=== PATIENT | male | born 1960 | race Two or more races ===

== ENCOUNTER 2017-08-20 12:54 | Emergency (ER) | payer MEDICARE, OTHER ==
[~2017-08-20] VITALS: Ht 177.8 cm; Wt 90.7 kg
[~2017-08-20 12:54] MED LIST: ALBU90OI6 INH; AMLO10 PO; AMOCLA875 PO; AMOX500 PO; ATEN50 PO; Acetaminophen650 M1 PO; Amoxicillin500 MG PO; Ativan1 MG PO; BENZ100A PO; BLOOD PRESSURE PILL; CEPH500 PO; CYCL10 PO; DIAZ2 PO; ESOM20 PO; HYDACE10B PO; Hydrocodone-Ap1 EA20 PO; LEVSOD125 PO; LIDO2L PO; LOSA50 PO; META800 PO; METO10 PO; MORP30 PO; MORP60ER PO; MORPHINE SULFA100 M1 PO; NEBI10 PO; Norco 5-325 Ta1 EACH PO; OMEP20ER PO; ONDA4ODT MM; OXYC10TA19 PO; PREG50 PO; Percocet 5-3251 EACH PO; Prednisone20 MG PO; Prilosec Otc20 MG; RANI150 PO; RXHYD5325 PO; SIME80CH PO; THYROXINE PO; TRAZ150T57 PO; TRAZ50 PO; TYLENOL; Zofran Odt4 MG PO; Zofran Odt8 MG SL; Zofran8 MG PO
[2017-08-20] MEDS ORDERED: BENZ100A PO (14:22)
[2018-01-09] MEDS ORDERED: MORP60ER PO (09:02)
[2018-01-09] MEDS ORDERED: Hydrocodone-Ap1 EA20 PO (09:03)
[2018-01-09] MEDS ORDERED: LEVSOD125 PO (09:05)
[2018-01-09] MEDS ORDERED: ALBU90OI6 INH (09:05)
[2018-01-09] MEDS ORDERED: CHOL10002 PO (09:06)
[2018-01-09] MEDS ORDERED: ATOR10 PO (09:06)
[2018-01-09] MEDS ORDERED: Omeprazole20 M1 PO (09:06)
[2018-01-09] MEDS ORDERED: DIVA500ER PO (09:07)
[2018-01-09] MEDS ORDERED: PRED20 PO (09:07)
[2018-01-09] MEDS ORDERED: OXYC5 PO (09:09)
[2018-01-09] MEDS ORDERED: AMITRIP CDP PO (09:11)
[2018-01-09] MEDS ORDERED: PROM25 PO (09:13)
[2018-01-09] MEDS ORDERED: LISI5 PO (09:15)
[2018-01-09] MEDS ORDERED: NEBI10 PO (09:17)
[2018-01-09] MEDS ORDERED: OLAN10 PO (09:17)
[2018-01-09] MEDS ORDERED: METO10 PO (09:20)
[2018-01-09] MEDS ORDERED: ONDA8 PO (09:21)
[2018-04-28] MEDS ORDERED: HYDR25SUP PR (15:56)
[2018-07-18] MEDS ORDERED: AMOCLA250S PO (13:08)
== END 2017-08-20 14:45 | disposition home or self-care (01) ==
LOC: ER 12:54
DX: J11.1 Influenza due to unidentified influenza virus with other respiratory manifestations (principal); Z88.8 Allergy status to other drugs, medicaments and biological substances; Z79.899 Other long term (current) drug therapy; Z87.891 Personal history of nicotine dependence
CPT/HCPCS: 71046; 99283

== ENCOUNTER 2017-11-10 03:05 | Emergency (ER) | payer MEDICARE, OTHER ==
[~2017-11-10] VITALS: Ht 177.8 cm; Wt 88.9 kg
[2017-11-10 04:25] LABS: BASOPHILS ABSOLUTE AUTO 0.07 K/mm3 (0.00-0.23); BASOPHILS PERCENT AUTO 1 % (0-2); EOSINOPHILS ABSOLUTE AUTO 0.19 K/mm3 (0.00-0.68); EOSINOPHILS PERCENT AUTO 4 % (0-6); Hematocrit 34.3 % (37.0-53.0); IMMATURE GRAN ABSOLUTE AUTO 0.02 K/mm3 (0.00-0.10); IMMATURE GRAN PERCENT AUTO 0 % (0-1); LYMPHOCYTES ABSOLUTE AUTO 0.88 K/mm3 (0.84-5.20); LYMPHOCYTES PERCENT AUTO 16 % (21-46); MONOCYTES PERCENT AUTO 9 % (4-13); Mean Corpuscular HGB 36.3 pg (26.0-34.0); Mean Corpuscular Volume 104 fL (80-100); Mean Platelet Volume 8.1 fL (9.1-12.4); NEUTROPHILS ABSOLUTE AUTO 3.74 K/mm3 (1.96-9.15); NEUTROPHILS PERCENT AUTO 69 % (41-73); Platelet Count 240 K/mm3 (150-400); RDW Coefficient Variation 12.2 % (11.7-14.2); RDW Standard Deviation 46.2 fL (35.1-46.3); Red Blood Cell Count 3.31 M/mm3 (4.30-5.90)
[2017-11-10 04:45] LABS: Albumin, Blood 3.4 g/dL (3.4-5.0); Albumin/Globulin Ratio 0.9 (0.8-1.8); Bilirubin, Total 0.4 mg/dL (0.1-1.0); Bun/Creatinine Ratio 10.7 (12.0-20.0); Calcium, Blood 8.6 mg/dL (8.5-10.1); Creatinine, Blood 1.31 mg/dL (0.60-1.20); Globulin, Blood 3.6 g/dL (2.2-4.0); Potassium, Blood 4.1 mmol/L (3.5-5.5)
[2017-11-10] MEDS ORDERED: Zofran4 MG (04:52)
[2018-01-09] MEDS ORDERED: MORP60ER PO (09:02)
[2018-01-09] MEDS ORDERED: Hydrocodone-Ap1 EA20 PO (09:03)
[2018-01-09] MEDS ORDERED: LEVSOD125 PO (09:05)
[2018-01-09] MEDS ORDERED: ALBU90OI6 INH (09:05)
[2018-01-09] MEDS ORDERED: ATOR10 PO (09:06)
[2018-01-09] MEDS ORDERED: Omeprazole20 M1 PO (09:06)
[2018-01-09] MEDS ORDERED: CHOL10002 PO (09:06)
[2018-01-09] MEDS ORDERED: PRED20 PO (09:07)
[2018-01-09] MEDS ORDERED: DIVA500ER PO (09:07)
[2018-01-09] MEDS ORDERED: OXYC5 PO (09:09)
[2018-01-09] MEDS ORDERED: AMITRIP CDP PO (09:11)
[2018-01-09] MEDS ORDERED: PROM25 PO (09:13)
[2018-01-09] MEDS ORDERED: LISI5 PO (09:15)
[2018-01-09] MEDS ORDERED: NEBI10 PO (09:17)
[2018-01-09] MEDS ORDERED: OLAN10 PO (09:17)
[2018-01-09] MEDS ORDERED: METO10 PO (09:20)
[2018-01-09] MEDS ORDERED: ONDA8 PO (09:21)
[2018-04-28] MEDS ORDERED: HYDR25SUP PR (15:56)
[2018-07-18] MEDS ORDERED: AMOCLA250S PO (13:08)
== END 2017-11-10 07:36 | disposition short-term general hospital (02) ==
LOC: ER 03:05
PROVIDERS: Emergency Medicine
DX: T18.128A Food in esophagus causing other injury, initial encounter (principal); I10 Essential (primary) hypertension; E03.9 Hypothyroidism, unspecified; Z87.891 Personal history of nicotine dependence; Z88.8 Allergy status to other drugs, medicaments and biological substances; Z79.899 Other long term (current) drug therapy
CPT/HCPCS: 36415; 80053; 85025; 96361; 96374; 99285; J1170; J1610; J7030

== ENCOUNTER 2017-12-06 20:23 | Emergency (ER) | payer MEDICARE, OTHER ==
[~2017-12-06] VITALS: Ht 177.8 cm; Wt 85.7 kg
[~2017-12-06 20:23] MED LIST changes: +Zofran4 MG
== END 2017-12-06 22:56 | disposition home or self-care (01) ==
LOC: ER 20:23
DX: S02.2XXA Fracture of nasal bones, initial encounter for closed fracture (principal); S40.012A Contusion of left shoulder, initial encounter; S70.02XA Contusion of left hip, initial encounter; V29.9XXA Motorcycle rider (driver) (passenger) injured in unspecified traffic accident, initial encounter; Z88.8 Allergy status to other drugs, medicaments and biological substances; Z79.899 Other long term (current) drug therapy; Z79.891 Long term (current) use of opiate analgesic; E03.9 Hypothyroidism, unspecified; I10 Essential (primary) hypertension; Z87.891 Personal history of nicotine dependence; Z85.21 Personal history of malignant neoplasm of larynx
CPT/HCPCS: 70450; 70486; 71046; 72125; 73030; 73502; 96374; 96375; 96376; 99284; J2405; J3010

== ENCOUNTER 2017-12-24 06:09 | Inpatient (IN) | payer MEDICARE, OTHER ==
[~2017-12-24] VITALS: Ht 175.3 cm; Wt 85.8 kg
[2017-12-24] MEDS ORDERED: METO10 PO (06:22)
[2017-12-24] MEDS ORDERED: KEYTRUDA100 MG/4 M (06:23)
[2017-12-24] MEDS ORDERED: OPDIVO40 MG/4 ML (06:23)
[2017-12-24] MEDS ORDERED: Norco 10-325 T1 EACH PO (06:26)
[2017-12-24 07:12] LABS: Albumin, Blood 2.9 g/dL (3.4-5.0); Albumin/Globulin Ratio 0.8 (0.8-1.8); Bilirubin, Total 1.2 mg/dL (0.1-1.0); Bun/Creatinine Ratio 21.5 (12.0-20.0); Calcium, Blood 8.5 mg/dL (8.5-10.1); Creatinine, Blood 1.86 mg/dL (0.60-1.20); Globulin, Blood 3.6 g/dL (2.2-4.0); Potassium, Blood 4.6 mmol/L (3.5-5.5); Total Protein, Blood 6.5 g/dL (6.4-8.2)
[2017-12-24 07:20] LABS: BASOPHILS ABSOLUTE AUTO 0.02 K/mm3 (0.00-0.23); BASOPHILS PERCENT AUTO 0 % (0-2); EOSINOPHILS ABSOLUTE AUTO 0.02 K/mm3 (0.00-0.68); EOSINOPHILS PERCENT AUTO 0 % (0-6); Hematocrit 44.4 % (37.0-53.0); Hemoglobin 15.2 g/dL (13.5-17.5); IMMATURE GRAN ABSOLUTE AUTO 0.07 K/mm3 (0.00-0.10); IMMATURE GRAN PERCENT AUTO 1 % (0-1); LYMPHOCYTES ABSOLUTE AUTO 0.46 K/mm3 (0.84-5.20); LYMPHOCYTES PERCENT AUTO 5 % (21-46); MONOCYTES ABSOLUTE AUTO 0.54 K/mm3 (0.16-1.47); MONOCYTES PERCENT AUTO 6 % (4-13); Mean Corpuscular HGB 35.1 pg (26.0-34.0); Mean Corpuscular HGB Conc 34.2 g/dL (31.5-36.5); Mean Corpuscular Volume 103 fL (80-100); Mean Platelet Volume 9.5 fL (9.1-12.4); NEUTROPHILS ABSOLUTE AUTO 7.56 K/mm3 (1.96-9.15); NEUTROPHILS PERCENT AUTO 87 % (41-73); NRBC ABSOLUTE 0.13 K/mm3 (0.00-0.02); NRBC Auto 1.5 /100 WBC (0.0-0.2); Platelet Count 147 K/mm3 (150-400); RDW Coefficient Variation 12.3 % (11.7-14.2); RDW Standard Deviation 46.2 fL (35.1-46.3); Red Blood Cell Count 4.33 M/mm3 (4.30-5.90); White Blood Cell Count 8.67 K/mm3 (4.00-11.30)
[2017-12-24 09:58] LABS: Amylase, Blood 519 U/L (25-115); Magnesium, Blood 1.7 mg/dL (1.6-2.4); Phosphorus, Blood 2.5 mg/dL (2.5-4.9); Triglycerides 234 mg/dL (30-160)
[2017-12-25 03:52] LABS: BASOPHILS ABSOLUTE AUTO 0.03 K/mm3 (0.00-0.23); BASOPHILS PERCENT AUTO 0 % (0-2); EOSINOPHILS ABSOLUTE AUTO 0.18 K/mm3 (0.00-0.68); EOSINOPHILS PERCENT AUTO 3 % (0-6); Hematocrit 37.3 % (37.0-53.0); Hemoglobin 12.4 g/dL (13.5-17.5); IMMATURE GRAN ABSOLUTE AUTO 0.03 K/mm3 (0.00-0.10); IMMATURE GRAN PERCENT AUTO 0 % (0-1); LYMPHOCYTES ABSOLUTE AUTO 0.82 K/mm3 (0.84-5.20); LYMPHOCYTES PERCENT AUTO 12 % (21-46); MONOCYTES PERCENT AUTO 9 % (4-13); Mean Corpuscular HGB 34.6 pg (26.0-34.0); Mean Corpuscular HGB Conc 33.2 g/dL (31.5-36.5); Mean Corpuscular Volume 104 fL (80-100); Mean Platelet Volume 9.5 fL (9.1-12.4); NEUTROPHILS ABSOLUTE AUTO 5.32 K/mm3 (1.96-9.15); NEUTROPHILS PERCENT AUTO 76 % (41-73); NRBC ABSOLUTE 0.02 K/mm3 (0.00-0.02); NRBC Auto 0.3 /100 WBC (0.0-0.2); Platelet Count 116 K/mm3 (150-400); RDW Coefficient Variation 12.7 % (11.7-14.2); Red Blood Cell Count 3.58 M/mm3 (4.30-5.90); White Blood Cell Count 6.98 K/mm3 (4.00-11.30)
[2017-12-25 04:10] LABS: Alanine Aminotransfer (ALT/SGP 71 U/L (12-78); Albumin, Blood 2.5 g/dL (3.4-5.0); Albumin/Globulin Ratio 0.9 (0.8-1.8); Alk Phos 204 U/L (50-136); Amylase, Blood 348 U/L (25-115); Anion Gap 5 mmol/L (6-16); Aspartate Aminotrans (AST/SGOT 29 U/L (12-37); Blood Urea Nitrogen 37 mg/dL (8-24); Bun/Creatinine Ratio 20.9 (12.0-20.0); CO2, Blood 27 mmol/L (21-32); Calcium, Blood 7.4 mg/dL (8.5-10.1); Chloride, Blood 107 mmol/L (98-108); Creatinine, Blood 1.77 mg/dL (0.60-1.20); Globulin, Blood 2.9 g/dL (2.2-4.0); Glomerular Filtration Rate 42 (60-); Glucose, Blood 91 mg/dL (70-99); Magnesium, Blood 1.7 mg/dL (1.6-2.4); Phosphorus, Blood 1.8 mg/dL (2.5-4.9); Potassium, Blood 3.9 mmol/L (3.5-5.5); Sodium, Blood 139 mmol/L (136-145); Total Protein, Blood 5.4 g/dL (6.4-8.2); Triglycerides 221 mg/dL (30-160)
[2017-12-25 15:01] LABS: Appearance, Urine Clear (Clear); Bilirubin, Urine Neg (Neg); Blood, Urine 2+ (Neg); Color, Urine Amber (P-Yellow); Glucose Qualitative, Urine Neg (Neg); Ketones, Urine 3+ (Neg); Leukocyte Esterase, Urine 1+ (Neg); Nitrite, Urine Neg (Neg); Protein, Urine 2+ (Neg); Specific Gravity, Urine 1.015 (1.003-1.022); Urobilinogen, Urine NORM (Normal)
[2017-12-25 15:17] LABS: Red Blood Cells, Urine 0-2 /hpf (0-2); Squamous Epithelial Cells Rare /hpf (Few); White Blood Cells, Urine 0-2 /hpf (0-5)
[2017-12-25 15:18] LABS: Bacteria Few /hpf
[2017-12-26 06:00] LABS: BASOPHILS PERCENT AUTO 0 % (0-2); EOSINOPHILS PERCENT AUTO 0 % (0-6); IMMATURE GRAN ABSOLUTE AUTO 0.02 K/mm3 (0.00-0.10); IMMATURE GRAN PERCENT AUTO 0 % (0-1); LYMPHOCYTES ABSOLUTE AUTO 0.32 K/mm3 (0.84-5.20); LYMPHOCYTES PERCENT AUTO 4 % (21-46); MONOCYTES PERCENT AUTO 1 % (4-13); Mean Corpuscular HGB 34.9 pg (26.0-34.0); Mean Corpuscular HGB Conc 34.4 g/dL (31.5-36.5); Mean Corpuscular Volume 102 fL (80-100); Mean Platelet Volume 9.7 fL (9.1-12.4); NEUTROPHILS PERCENT AUTO 94 % (41-73); Platelet Count 119 K/mm3 (150-400); RDW Coefficient Variation 12.4 % (11.7-14.2); Red Blood Cell Count 3.15 M/mm3 (4.30-5.90); White Blood Cell Count 7.54 K/mm3 (4.00-11.30)
[2017-12-26 07:15] LABS: Albumin, Blood 2.7 g/dL (3.4-5.0); Albumin/Globulin Ratio 0.8 (0.8-1.8); Bilirubin, Total 0.9 mg/dL (0.1-1.0); Bun/Creatinine Ratio 19.7 (12.0-20.0); Creatinine, Blood 1.37 mg/dL (0.60-1.20); Globulin, Blood 3.6 g/dL (2.2-4.0); Magnesium, Blood 2.1 mg/dL (1.6-2.4); Phosphorus, Blood 1.7 mg/dL (2.5-4.9); Potassium, Blood 4.4 mmol/L (3.5-5.5); Total Protein, Blood 6.3 g/dL (6.4-8.2)
[2017-12-27 06:22] LABS: BASOPHILS ABSOLUTE AUTO 0.01 K/mm3 (0.00-0.23); BASOPHILS PERCENT AUTO 0 % (0-2); EOSINOPHILS PERCENT AUTO 0 % (0-6); Hematocrit 32.6 % (37.0-53.0); Hemoglobin 11.1 g/dL (13.5-17.5); IMMATURE GRAN ABSOLUTE AUTO 0.21 K/mm3 (0.00-0.10); IMMATURE GRAN PERCENT AUTO 2 % (0-1); LYMPHOCYTES ABSOLUTE AUTO 0.34 K/mm3 (0.84-5.20); LYMPHOCYTES PERCENT AUTO 3 % (21-46); MONOCYTES ABSOLUTE AUTO 0.33 K/mm3 (0.16-1.47); MONOCYTES PERCENT AUTO 3 % (4-13); Mean Corpuscular HGB 34.6 pg (26.0-34.0); Mean Corpuscular Volume 102 fL (80-100); Mean Platelet Volume 9.5 fL (9.1-12.4); NEUTROPHILS ABSOLUTE AUTO 11.23 K/mm3 (1.96-9.15); NEUTROPHILS PERCENT AUTO 93 % (41-73); Platelet Count 153 K/mm3 (150-400); RDW Coefficient Variation 12.3 % (11.7-14.2); RDW Standard Deviation 45.7 fL (35.1-46.3); Red Blood Cell Count 3.21 M/mm3 (4.30-5.90); White Blood Cell Count 12.12 K/mm3 (4.00-11.30)
[2017-12-27 06:46] LABS: Albumin, Blood 2.5 g/dL (3.4-5.0); Anion Gap 7 mmol/L (6-16); Blood Urea Nitrogen 20 mg/dL (8-24); CO2, Blood 28 mmol/L (21-32); Calcium, Blood 7.9 mg/dL (8.5-10.1); Chloride, Blood 100 mmol/L (98-108); Creatinine, Blood 1.11 mg/dL (0.60-1.20); Glomerular Filtration Rate >60 (60-); Glucose, Blood 191 mg/dL (70-99); Phosphorus, Blood 1.8 mg/dL (2.5-4.9); Potassium, Blood 4.3 mmol/L (3.5-5.5); Sodium, Blood 135 mmol/L (136-145)
[2017-12-28 05:47] LABS: BASOPHILS PERCENT AUTO 0 % (0-2); EOSINOPHILS PERCENT AUTO 0 % (0-6); Hematocrit 32.7 % (37.0-53.0); Hemoglobin 11.4 g/dL (13.5-17.5); IMMATURE GRAN ABSOLUTE AUTO 0.15 K/mm3 (0.00-0.10); IMMATURE GRAN PERCENT AUTO 1 % (0-1); LYMPHOCYTES ABSOLUTE AUTO 0.34 K/mm3 (0.84-5.20); LYMPHOCYTES PERCENT AUTO 3 % (21-46); MONOCYTES ABSOLUTE AUTO 0.25 K/mm3 (0.16-1.47); MONOCYTES PERCENT AUTO 2 % (4-13); Mean Corpuscular HGB 35.6 pg (26.0-34.0); Mean Corpuscular HGB Conc 34.9 g/dL (31.5-36.5); Mean Corpuscular Volume 102 fL (80-100); Mean Platelet Volume 9.2 fL (9.1-12.4); NEUTROPHILS ABSOLUTE AUTO 10.02 K/mm3 (1.96-9.15); NEUTROPHILS PERCENT AUTO 93 % (41-73); Platelet Count 182 K/mm3 (150-400); RDW Coefficient Variation 12.4 % (11.7-14.2); RDW Standard Deviation 46.4 fL (35.1-46.3); White Blood Cell Count 10.76 K/mm3 (4.00-11.30)
[2017-12-28 06:07] LABS: Albumin, Blood 2.6 g/dL (3.4-5.0); Anion Gap 7 mmol/L (6-16); Blood Urea Nitrogen 20 mg/dL (8-24); Bun/Creatinine Ratio 21.4 (12.0-20.0); CO2, Blood 31 mmol/L (21-32); Chloride, Blood 99 mmol/L (98-108); Creatinine, Blood 0.93 mg/dL (0.60-1.20); Glomerular Filtration Rate >60 (60-); Glucose, Blood 146 mg/dL (70-99); Phosphorus, Blood 1.7 mg/dL (2.5-4.9); Potassium, Blood 4.6 mmol/L (3.5-5.5); Sodium, Blood 137 mmol/L (136-145)
[2017-12-28] MEDS ORDERED: DOCU100 PO (12:04)
[2017-12-28] MEDS ORDERED: DELTASONE20 MG PO (12:05)
== END 2017-12-28 13:01 | disposition home or self-care (01) | DRG 439 ==
LOC: ER 06:09 → ICUW 09:27 → PCU 09:27 → MEDS 09:50 → ICUW 10:02 → PCU 17:01 → MEDS 12-25 13:02 → ENPENDDIS 12-28 10:53 → MEDS 12-28 13:01
PROVIDERS: Emergency Medicine; Family Medicine
DX: K85.30 Drug induced acute pancreatitis without necrosis or infection (principal); N17.9 Acute kidney failure, unspecified; E87.1 Hypo-osmolality and hyponatremia; T45.1X5A Adverse effect of antineoplastic and immunosuppressive drugs, initial encounter; T50.905A Adverse effect of unspecified drugs, medicaments and biological substances, initial encounter; C32.9 Malignant neoplasm of larynx, unspecified; I12.9 Hypertensive chronic kidney disease with stage 1 through stage 4 chronic kidney disease, or unspecified chronic kidney disease; N18.3 Chronic kidney disease, stage 3 (moderate); K59.03 Drug induced constipation; T40.605A Adverse effect of unspecified narcotics, initial encounter; E83.39 Other disorders of phosphorus metabolism
CPT/HCPCS: 36415; 74150; 76705; 80053; 80069; 81001; 82150; 82330; 82947; 83605; 83690; 83735; 84100; 84478; 85025; 86141; 87086; 94762; 96361; 96374; 96375; 96376; 99285; C1751; C9113; J0360; J1650; J1885; J2185; J2405; J2930; J3010; J7030; J7060

== ENCOUNTER 2018-01-17 08:30 | Day surgery (SDC) | payer MEDICARE, OTHER ==
[~2018-01-17] VITALS: Ht 177.8 cm; Wt 83.9 kg
[~2018-01-17 08:30] MED LIST changes: +AMITRIP CDP PO; +ATOR10 PO; +CHOL10002 PO; +DELTASONE20 MG PO; +DIVA500ER PO; +DOCU100 PO; +KEYTRUDA100 MG/4 M; +LISI5 PO; +Norco 10-325 T1 EACH PO; +OLAN10 PO; +ONDA8 PO; +OPDIVO40 MG/4 ML; +OXYC5 PO; +Omeprazole20 M1 PO; +PRED20 PO; +PROM25 PO
== END 2018-01-17 23:00 | disposition home or self-care (01) ==
LOC: ORSCMMR 08:30
PROVIDERS: Surgery
PROC: B5181ZA Fluoroscopy of Superior Vena Cava using Low Osmolar Contrast, Guidance (ICD-10-PCS; principal; 2018-01-17 11:30)
PROC: 02HV33Z Insertion of Infusion Device into Superior Vena Cava, Percutaneous Approach (ICD-10-PCS; principal; 2018-01-17 11:30)
DX: C32.1 Malignant neoplasm of supraglottis (principal); C77.0 Secondary and unspecified malignant neoplasm of lymph nodes of head, face and neck; I10 Essential (primary) hypertension; K21.9 Gastro-esophageal reflux disease without esophagitis; Z79.899 Other long term (current) drug therapy
CPT/HCPCS: 77001; 93005; 93010; C1788; J0690; J1100; J1642; J1885; J2250; J2405; J2710; J3010; J7120

== ENCOUNTER 2018-02-22 12:05 | Emergency (ER) | payer MEDICARE, OTHER ==
[~2018-02-22] VITALS: Ht 177.8 cm; Wt 85.3 kg
[2018-02-22 15:21] LABS: BASOPHILS ABSOLUTE AUTO 0.01 K/mm3 (0.00-0.23); BASOPHILS PERCENT AUTO 0 % (0-2); EOSINOPHILS ABSOLUTE AUTO 0.01 K/mm3 (0.00-0.68); EOSINOPHILS PERCENT AUTO 0 % (0-6); Hematocrit 38.9 % (37.0-53.0); Hemoglobin 13.2 g/dL (13.5-17.5); IMMATURE GRAN ABSOLUTE AUTO 0.11 K/mm3 (0.00-0.10); IMMATURE GRAN PERCENT AUTO 2 % (0-1); LYMPHOCYTES ABSOLUTE AUTO 0.27 K/mm3 (0.84-5.20); LYMPHOCYTES PERCENT AUTO 4 % (21-46); MONOCYTES ABSOLUTE AUTO 0.16 K/mm3 (0.16-1.47); MONOCYTES PERCENT AUTO 2 % (4-13); Mean Corpuscular HGB 35.5 pg (26.0-34.0); Mean Corpuscular HGB Conc 33.9 g/dL (31.5-36.5); Mean Corpuscular Volume 105 fL (80-100); Mean Platelet Volume 8.2 fL (9.1-12.4); NEUTROPHILS ABSOLUTE AUTO 6.07 K/mm3 (1.96-9.15); NEUTROPHILS PERCENT AUTO 91 % (41-73); Platelet Count 173 K/mm3 (150-400); RDW Coefficient Variation 15.8 % (11.7-14.2); RDW Standard Deviation 60.3 fL (35.1-46.3); Red Blood Cell Count 3.72 M/mm3 (4.30-5.90); White Blood Cell Count 6.63 K/mm3 (4.00-11.30)
[2018-02-22] MEDS ORDERED: Norco 10-325 T1 EACH PO (15:40)
[2018-02-22 15:41] LABS: Albumin, Blood 3.4 g/dL (3.4-5.0); Albumin/Globulin Ratio 0.9 (0.8-1.8); Bilirubin, Total 0.8 mg/dL (0.1-1.0); Bun/Creatinine Ratio 17.3 (12.0-20.0); Calcium, Blood 9.2 mg/dL (8.5-10.1); Creatinine, Blood 1.39 mg/dL (0.60-1.20); Globulin, Blood 3.7 g/dL (2.2-4.0); Potassium, Blood 4.3 mmol/L (3.5-5.5); Total Protein, Blood 7.1 g/dL (6.4-8.2)
[2018-02-22] MEDS ORDERED: ZANTAC PO (15:42)
== END 2018-02-22 16:53 | disposition home or self-care (01) ==
LOC: ER 12:05
PROVIDERS: Emergency Medicine
DX: R10.13 Epigastric pain (principal); R11.2 Nausea with vomiting, unspecified; Z88.8 Allergy status to other drugs, medicaments and biological substances; Z79.899 Other long term (current) drug therapy
CPT/HCPCS: 36415; 80053; 83690; 85025; J1642; J2405; J3010; J7030

== ENCOUNTER 2018-04-04 11:06 | Day surgery (SDC) | payer MEDICARE, OTHER ==
[~2018-04-04 11:06] MED LIST changes: +ZANTAC PO
== END 2018-04-04 22:39 | disposition home or self-care (01) ==
LOC: RAD 11:06
DX: C32.1 Malignant neoplasm of supraglottis (principal)
CPT/HCPCS: 36598; Q9967

== ENCOUNTER 2018-04-10 08:53 | Observation (INO) | payer MEDICARE, OTHER ==
[~2018-04-10] VITALS: Ht 177.8 cm; Wt 78.6 kg
[2018-04-10 09:26] LABS: BASOPHILS ABSOLUTE AUTO 0.05 K/mm3 (0.00-0.23); BASOPHILS PERCENT AUTO 1 % (0-2); EOSINOPHILS ABSOLUTE AUTO 0.13 K/mm3 (0.00-0.68); EOSINOPHILS PERCENT AUTO 2 % (0-6); Hematocrit 38.6 % (37.0-53.0); Hemoglobin 14.1 g/dL (13.5-17.5); IMMATURE GRAN ABSOLUTE AUTO 0.03 K/mm3 (0.00-0.10); IMMATURE GRAN PERCENT AUTO 1 % (0-1); LYMPHOCYTES ABSOLUTE AUTO 0.66 K/mm3 (0.84-5.20); LYMPHOCYTES PERCENT AUTO 10 % (21-46); MONOCYTES ABSOLUTE AUTO 0.44 K/mm3 (0.16-1.47); MONOCYTES PERCENT AUTO 7 % (4-13); Mean Corpuscular HGB Conc 36.5 g/dL (31.5-36.5); Mean Corpuscular Volume 99 fL (80-100); Mean Platelet Volume 9.3 fL (9.1-12.4); NEUTROPHILS ABSOLUTE AUTO 5.34 K/mm3 (1.96-9.15); NEUTROPHILS PERCENT AUTO 80 % (41-73); NRBC ABSOLUTE 0.02 K/mm3 (0.00-0.02); NRBC Auto 0.3 /100 WBC (0.0-0.2); Platelet Count 108 K/mm3 (150-400); RDW Coefficient Variation 12.7 % (11.7-14.2); Red Blood Cell Count 3.92 M/mm3 (4.30-5.90); White Blood Cell Count 6.65 K/mm3 (4.00-11.30)
[2018-04-10 09:49] LABS: Albumin, Blood 3.1 g/dL (3.4-5.0); Albumin/Globulin Ratio 0.9 (0.8-1.8); Bun/Creatinine Ratio 15.8 (12.0-20.0); Calcium, Blood 8.1 mg/dL (8.5-10.1); Creatinine, Blood 1.71 mg/dL (0.60-1.20); Globulin, Blood 3.6 g/dL (2.2-4.0); Potassium, Blood 2.8 mmol/L (3.5-5.5); Total Protein, Blood 6.7 g/dL (6.4-8.2)
[2018-04-10 12:52] LABS: PCO2 Arterial 46.7 mmHg (35-45); PO2 Arterial 81.9 mmHg (80-100); pH Blood Arterial 7.49 (7.35-7.45)
[2018-04-10] MEDS ORDERED: Hair, Skin & N1 EACH PO (15:26)
[2018-04-11 04:38] LABS: BASOPHILS ABSOLUTE AUTO 0.03 K/mm3 (0.00-0.23); BASOPHILS PERCENT AUTO 1 % (0-2); EOSINOPHILS ABSOLUTE AUTO 0.07 K/mm3 (0.00-0.68); EOSINOPHILS PERCENT AUTO 2 % (0-6); Hematocrit 34.8 % (37.0-53.0); Hemoglobin 12.5 g/dL (13.5-17.5); IMMATURE GRAN ABSOLUTE AUTO 0.02 K/mm3 (0.00-0.10); IMMATURE GRAN PERCENT AUTO 1 % (0-1); LYMPHOCYTES ABSOLUTE AUTO 0.44 K/mm3 (0.84-5.20); LYMPHOCYTES PERCENT AUTO 14 % (21-46); MONOCYTES PERCENT AUTO 6 % (4-13); Mean Corpuscular HGB 35.9 pg (26.0-34.0); Mean Corpuscular HGB Conc 35.9 g/dL (31.5-36.5); Mean Corpuscular Volume 100 fL (80-100); Mean Platelet Volume 8.7 fL (9.1-12.4); NEUTROPHILS ABSOLUTE AUTO 2.39 K/mm3 (1.96-9.15); NEUTROPHILS PERCENT AUTO 76 % (41-73); Platelet Count 94 K/mm3 (150-400); RDW Coefficient Variation 12.7 % (11.7-14.2); RDW Standard Deviation 47.1 fL (35.1-46.3); Red Blood Cell Count 3.48 M/mm3 (4.30-5.90); White Blood Cell Count 3.15 K/mm3 (4.00-11.30)
[2018-04-11 04:53] LABS: Bun/Creatinine Ratio 15.3 (12.0-20.0); Creatinine, Blood 1.44 mg/dL (0.60-1.20); Potassium, Blood 2.9 mmol/L (3.5-5.5)
[2018-04-11] MEDS ORDERED: ONDA4ODT PO (13:53)
[2018-04-11] MEDS ORDERED: Prednisone10 MG PO (13:56)
== END 2018-04-11 14:14 | disposition home or self-care (01) ==
LOC: ER 08:53 → MEDS 08:54 → ER 13:43 → MEDS 13:43 → ENPENDDIS 04-11 13:14 → MEDS 04-11 14:14
PROVIDERS: Emergency Medicine; Internal Medicine
DX: C32.9 Malignant neoplasm of larynx, unspecified (principal); I95.1 Orthostatic hypotension; R09.02 Hypoxemia; D69.6 Thrombocytopenia, unspecified; N18.9 Chronic kidney disease, unspecified; Z79.899 Other long term (current) drug therapy; Z87.891 Personal history of nicotine dependence
CPT/HCPCS: 36415; 36600; 71046; 71260; 80048; 80053; 82803; 83605; 83690; 83735; 85025; 87040; 93005; 93010; 94760; 94761; 96361; 96365; 96375; 96376; 99285-25; G0378; J1642; J1650; J2405; J3010; J3475; J7030; Q9967

== ENCOUNTER 2018-05-08 12:01 | Inpatient (IN) | payer MEDICARE, OTHER ==
[~2018-05-08] VITALS: Ht 177.8 cm; Wt 78.9 kg
[~2018-05-08 12:01] MED LIST changes: +HYDR25SUP PR; +Hair, Skin & N1 EACH PO; +ONDA4ODT PO; +Prednisone10 MG PO
[2018-05-08 12:50] LABS: Hematocrit 27.7 % (37.0-53.0); Hemoglobin 9.8 g/dL (13.5-17.5); Mean Corpuscular HGB 37.5 pg (26.0-34.0); Mean Corpuscular HGB Conc 35.4 g/dL (31.5-36.5); Mean Corpuscular Volume 106 fL (80-100); RDW Coefficient Variation 14.2 % (11.7-14.2); RDW Standard Deviation 54.8 fL (35.1-46.3); Red Blood Cell Count 2.61 M/mm3 (4.30-5.90); White Blood Cell Count 3.15 K/mm3 (4.00-11.30)
[2018-05-08 13:13] LABS: Troponin I <0.015 ng/mL (0.000-0.040)
[2018-05-08 13:18] LABS: Alanine Aminotransfer (ALT/SGP 45 U/L (12-78); Alk Phos 183 U/L (50-136); Anion Gap 12 mmol/L (6-16); Aspartate Aminotrans (AST/SGOT 27 U/L (12-37); Blood Urea Nitrogen 19 mg/dL (8-24); Bun/Creatinine Ratio 13.7 (12.0-20.0); CO2, Blood 31 mmol/L (21-32); Calcium, Blood 7.4 mg/dL (8.5-10.1); Chloride, Blood 92 mmol/L (98-108); Creatinine, Blood 1.39 mg/dL (0.60-1.20); Globulin, Blood 3.1 g/dL (2.2-4.0); Glomerular Filtration Rate 56 (60-); Glucose, Blood 99 mg/dL (70-99); Potassium, Blood 2.4 mmol/L (3.5-5.5); Sodium, Blood 135 mmol/L (136-145); Total Protein, Blood 6.1 g/dL (6.4-8.2)
[2018-05-08 13:23] LABS: Mean Platelet Volume 9.6 fL (9.1-12.4); Platelet Count 89 K/mm3 (150-400)
[2018-05-08 14:26] LABS: BAND PERCENT MAN 15 % (0-8); BASOPHILS PERCENT MAN 0 % (0-2); EOSINOPHILS ABSOLUTE MAN 0.09 K/mm3 (0.00-0.68); EOSINOPHILS PERCENT MAN 3 % (0-6); LYMPHOCYTES ABSOLUTE MAN 0.47 K/mm3 (0.84-5.20); LYMPHOCYTES PERCENT MAN 15 % (21-46); MONOCYTES ABSOLUTE MAN 0.15 K/mm3 (0.16-1.47); MONOCYTES PERCENT MAN 5 % (4-13); NEUTROPHILS ABSOLUTE MAN 2.42 K/mm3 (1.96-9.15); SEG NEUTROPHILS PERCENT MAN 62 % (41-73); TOTAL CELLS COUNTED 100
[2018-05-08] MEDS ORDERED: Norco 10-325 T1 EACH PO (17:12)
[2018-05-08 20:06] LABS: International Normalized Ratio 1.05; Prothrombin Time Results 10.8 Sec (9.7-11.5)
[2018-05-09 04:51] LABS: Mean Corpuscular HGB 37.5 pg (26.0-34.0); Mean Corpuscular HGB Conc 34.6 g/dL (31.5-36.5); Mean Corpuscular Volume 108 fL (80-100); Mean Platelet Volume 10.1 fL (9.1-12.4); Platelet Count 70 K/mm3 (150-400); RDW Coefficient Variation 14.4 % (11.7-14.2); RDW Standard Deviation 56.6 fL (35.1-46.3); White Blood Cell Count 1.88 K/mm3 (4.00-11.30)
[2018-05-09 05:12] LABS: Bun/Creatinine Ratio 12.2 (12.0-20.0); Calcium, Blood 7.7 mg/dL (8.5-10.1); Creatinine, Blood 1.39 mg/dL (0.60-1.20); Potassium, Blood 2.7 mmol/L (3.5-5.5)
[2018-05-09 05:54] LABS: BAND PERCENT MAN 12 % (0-8); BASOPHILS ABSOLUTE MAN 0.01 K/mm3 (0.00-0.23); BASOPHILS PERCENT MAN 1 % (0-2); EOSINOPHILS ABSOLUTE MAN 0.01 K/mm3 (0.00-0.68); EOSINOPHILS PERCENT MAN 1 % (0-6); LYMPHOCYTES ABSOLUTE MAN 0.15 K/mm3 (0.84-5.20); LYMPHOCYTES PERCENT MAN 8 % (21-46); METAMYELOCYTE ABSOLUTE MAN 0.01 K/mm3 (0.00-0.00); METAMYELOCYTE PERCENT MAN 1 % (0-0); MONOCYTES ABSOLUTE MAN 0.28 K/mm3 (0.16-1.47); MONOCYTES PERCENT MAN 15 % (4-13); NEUTROPHILS ABSOLUTE MAN 1.39 K/mm3 (1.96-9.15); SEG NEUTROPHILS PERCENT MAN 62 % (41-73); TOTAL CELLS COUNTED 100
[2018-05-10 06:25] LABS: Anion Gap 7 mmol/L (6-16); Blood Urea Nitrogen 14 mg/dL (8-24); CO2, Blood 30 mmol/L (21-32); Calcium, Blood 7.5 mg/dL (8.5-10.1); Chloride, Blood 101 mmol/L (98-108); Creatinine, Blood 1.17 mg/dL (0.60-1.20); Glomerular Filtration Rate >60 (60-); Glucose, Blood 86 mg/dL (70-99); Magnesium, Blood 1.6 mg/dL (1.6-2.4); Potassium, Blood 3.7 mmol/L (3.5-5.5); Sodium, Blood 138 mmol/L (136-145)
[2018-05-11 04:58] LABS: BASOPHILS ABSOLUTE AUTO 0.02 K/mm3 (0.00-0.23); BASOPHILS PERCENT AUTO 1 % (0-2); Hematocrit 24.2 % (37.0-53.0); Hemoglobin 8.3 g/dL (13.5-17.5); Mean Corpuscular HGB 38.2 pg (26.0-34.0); Mean Corpuscular HGB Conc 34.3 g/dL (31.5-36.5); RDW Coefficient Variation 14.9 % (11.7-14.2); RDW Standard Deviation 59.3 fL (35.1-46.3); Red Blood Cell Count 2.17 M/mm3 (4.30-5.90); White Blood Cell Count 2.45 K/mm3 (4.00-11.30)
[2018-05-11 05:08] LABS: EOSINOPHILS ABSOLUTE AUTO 0.11 K/mm3 (0.00-0.68); EOSINOPHILS PERCENT AUTO 5 % (0-6); IMMATURE GRAN ABSOLUTE AUTO 0.13 K/mm3 (0.00-0.10); IMMATURE GRAN PERCENT AUTO 5 % (0-1); LYMPHOCYTES ABSOLUTE AUTO 0.66 K/mm3 (0.84-5.20); LYMPHOCYTES PERCENT AUTO 27 % (21-46); MONOCYTES ABSOLUTE AUTO 0.16 K/mm3 (0.16-1.47); MONOCYTES PERCENT AUTO 7 % (4-13); Mean Corpuscular Volume 112 fL (80-100); NEUTROPHILS ABSOLUTE AUTO 1.37 K/mm3 (1.96-9.15); NEUTROPHILS PERCENT AUTO 56 % (41-73); Platelet Count 50 K/mm3 (150-400)
[2018-05-11 05:19] LABS: Magnesium, Blood 1.3 mg/dL (1.6-2.4)
[2018-05-11 05:20] LABS: BAND PERCENT MAN 8 % (0-8); BASOPHILS ABSOLUTE MAN 0.02 K/mm3 (0.00-0.23); BASOPHILS PERCENT MAN 1 % (0-2); EOSINOPHILS ABSOLUTE MAN 0.17 K/mm3 (0.00-0.68); EOSINOPHILS PERCENT MAN 7 % (0-6); LYMPHOCYTES ABSOLUTE MAN 0.61 K/mm3 (0.84-5.20); LYMPHOCYTES PERCENT MAN 25 % (21-46); METAMYELOCYTE ABSOLUTE MAN 0.02 K/mm3 (0.00-0.00); METAMYELOCYTE PERCENT MAN 1 % (0-0); MONOCYTES ABSOLUTE MAN 0.12 K/mm3 (0.16-1.47); MONOCYTES PERCENT MAN 5 % (4-13); NEUTROPHILS ABSOLUTE MAN 1.49 K/mm3 (1.96-9.15); SEG NEUTROPHILS PERCENT MAN 53 % (41-73); TOTAL CELLS COUNTED 100
[2018-05-11 05:23] LABS: Alanine Aminotransfer (ALT/SGP 40 U/L (12-78); Alk Phos 173 U/L (50-136); Anion Gap 7 mmol/L (6-16); Aspartate Aminotrans (AST/SGOT 28 U/L (12-37); Bilirubin, Total 0.9 mg/dL (0.1-1.0); Blood Urea Nitrogen 14 mg/dL (8-24); CO2, Blood 29 mmol/L (21-32); Calcium, Blood 7.7 mg/dL (8.5-10.1); Chloride, Blood 102 mmol/L (98-108); Creatinine, Blood 1.27 mg/dL (0.60-1.20); Glomerular Filtration Rate >60 (60-); Glucose, Blood 85 mg/dL (70-99); Sodium, Blood 138 mmol/L (136-145)
[2018-05-11] MEDS ORDERED: PRED5EL PO (10:38)
[2018-05-11] MEDS ORDERED: ASPI81CH PO (10:39)
[2018-05-11] MEDS ORDERED: RANI150EL PO (10:39)
[2018-05-11] MEDS ORDERED: DIPH12.5EL PO (10:40)
[2018-05-11] MEDS ORDERED: Xylocaine 2% In20 ML PO (10:46)
[2018-05-11] MEDS ORDERED: NYST100000 PO (10:47)
[2018-05-11] MEDS ORDERED: POTCHL20ER PO (10:48)
[2018-05-11] MEDS ORDERED: MORP20L PO (10:57)
== END 2018-05-11 13:01 | disposition home or self-care (01) | DRG 64 ==
LOC: ER 12:01 → PCU 13:52
PROVIDERS: Emergency Medicine; Internal Medicine
PROC: 3E0234Z Introduction of Serum, Toxoid and Vaccine into Muscle, Percutaneous Approach (ICD-10-PCS; principal; 2018-05-08)
DX: I63.9 Cerebral infarction, unspecified (principal); D61.810 Antineoplastic chemotherapy induced pancytopenia; F11.20 Opioid dependence, uncomplicated; G81.94 Hemiplegia, unspecified affecting left nondominant side; N18.9 Chronic kidney disease, unspecified; E87.6 Hypokalemia; C32.9 Malignant neoplasm of larynx, unspecified; I65.22 Occlusion and stenosis of left carotid artery; R29.810 Facial weakness; K21.9 Gastro-esophageal reflux disease without esophagitis; I12.9 Hypertensive chronic kidney disease with stage 1 through stage 4 chronic kidney disease, or unspecified chronic kidney disease; M19.90 Unspecified osteoarthritis, unspecified site; Z87.891 Personal history of nicotine dependence; Z79.899 Other long term (current) drug therapy; Z92.21 Personal history of antineoplastic chemotherapy; Z88.8 Allergy status to other drugs, medicaments and biological substances; Z93.0 Tracheostomy status; Z23 Encounter for immunization
CPT/HCPCS: 36415; 70450; 70491; 71045; 80048; 80053; 81000; 82947; 83735; 84132; 84484; 85025; 85610; 85730; 90686; 92610; 93005; 93010; 96365; 96368; 96375; 99285-25; G8996; G8997; G8998; J1885; J2060; J2405; J3010; J3475; J3480; J7030; Q9967

== ENCOUNTER 2018-05-29 07:25 | Day surgery (SDC) | payer MEDICARE, OTHER ==
[~2018-05-29 07:25] MED LIST changes: +ASPI81CH PO; +DIPH12.5EL PO; +MORP20L PO; +NYST100000 PO; +POTCHL20ER PO; +PRED5EL PO; +RANI150EL PO; +Xylocaine 2% In20 ML PO
== END 2018-06-14 22:45 | disposition home or self-care (01) ==
LOC: TRN 07:25 → LAB SHORT 13:53 → TRN 06-14 22:45
DX: D64.81 Anemia due to antineoplastic chemotherapy (principal); C32.1 Malignant neoplasm of supraglottis; C77.0 Secondary and unspecified malignant neoplasm of lymph nodes of head, face and neck; C78.7 Secondary malignant neoplasm of liver and intrahepatic bile duct; C79.51 Secondary malignant neoplasm of bone
CPT/HCPCS: 36430; 86850; 86900; 86901; 86923; J1642; J7050; P9016

== ENCOUNTER 2018-07-12 11:29 | Emergency (ER) | payer MEDICARE, OTHER ==
[~2018-07-12] VITALS: Ht 177.8 cm; Wt 88.5 kg
[~2018-07-12 11:29] MED LIST changes: -ONDA4ODT PO; -Omeprazole20 M1 PO; -POTCHL20ER PO
[2018-07-12 13:04] LABS: Hematocrit 21.4 % (37.0-53.0); Hemoglobin 7.4 g/dL (13.5-17.5); Mean Corpuscular HGB 34.3 pg (26.0-34.0); Mean Corpuscular HGB Conc 34.6 g/dL (31.5-36.5); Mean Platelet Volume 9.9 fL (9.1-12.4); RDW Coefficient Variation 22.3 % (11.7-14.2); RDW Standard Deviation 77.1 fL (35.1-46.3); Red Blood Cell Count 2.16 M/mm3 (4.30-5.90)
[2018-07-12 13:07] LABS: BASOPHILS ABSOLUTE AUTO 0.01 K/mm3 (0.00-0.23); BASOPHILS PERCENT AUTO 2 % (0-2); EOSINOPHILS PERCENT AUTO 0 % (0-6); IMMATURE GRAN ABSOLUTE AUTO 0.01 K/mm3 (0.00-0.10); IMMATURE GRAN PERCENT AUTO 2 % (0-1); LYMPHOCYTES PERCENT AUTO 17 % (21-46); MONOCYTES ABSOLUTE AUTO 0.01 K/mm3 (0.16-1.47); MONOCYTES PERCENT AUTO 2 % (4-13); Mean Corpuscular Volume 99 fL (80-100); NEUTROPHILS ABSOLUTE AUTO 0.45 K/mm3 (1.96-9.15); NEUTROPHILS PERCENT AUTO 78 % (41-73)
[2018-07-12 13:09] LABS: Platelet Count 23 K/mm3 (150-400); White Blood Cell Count 0.58 K/mm3 (4.00-11.30)
[2018-07-12 13:10] LABS: Calcium, Blood 6.6 mg/dL (8.5-10.1); Creatinine, Blood 1.37 mg/dL (0.60-1.20); Potassium, Blood 3.6 mmol/L (3.5-5.5)
[2018-07-12 13:21] LABS: BAND PERCENT MAN 12 % (0-8); BASOPHILS PERCENT MAN 0 % (0-2); EOSINOPHILS PERCENT MAN 0 % (0-6); MONOCYTES PERCENT MAN 0 % (4-13); NEUTROPHILS ABSOLUTE MAN 0.58 K/mm3 (1.96-9.15); SEG NEUTROPHILS PERCENT MAN 88 % (41-73); TOTAL CELLS COUNTED 25
[2018-07-12] MEDS ORDERED: CEPH500 PO (14:23)
[2018-07-18] MEDS ORDERED: AMOCLA250S PO (13:08)
== END 2018-07-12 15:22 | disposition home or self-care (01) ==
LOC: ER 11:29
PROVIDERS: Emergency Medicine
DX: D61.810 Antineoplastic chemotherapy induced pancytopenia (principal); T45.1X5A Adverse effect of antineoplastic and immunosuppressive drugs, initial encounter; L03.113 Cellulitis of right upper limb; R60.0 Localized edema; C80.1 Malignant (primary) neoplasm, unspecified; Z88.8 Allergy status to other drugs, medicaments and biological substances; Z79.899 Other long term (current) drug therapy; Z79.82 Long term (current) use of aspirin; Z87.891 Personal history of nicotine dependence
CPT/HCPCS: 71045; 80048; 83880; 85025; 93005; 93010; 96361; 96365; 96375; 99284-25; J0696; J1170; J1447; J1940; J7030

== ENCOUNTER 2018-10-05 12:25 | Emergency (ER) | payer MEDICARE, OTHER ==
[~2018-10-05] VITALS: Ht 165.1 cm; Wt 89.8 kg
[~2018-10-05 12:25] MED LIST changes: +AMOCLA250S PO
[2018-10-05 12:53] LABS: BASOPHILS ABSOLUTE AUTO 0.01 K/mm3 (0.00-0.23); BASOPHILS PERCENT AUTO 0 % (0-2); EOSINOPHILS ABSOLUTE AUTO 0.01 K/mm3 (0.00-0.68); EOSINOPHILS PERCENT AUTO 0 % (0-6); Hematocrit 32.9 % (37.0-53.0); Hemoglobin 11.2 g/dL (13.5-17.5); IMMATURE GRAN ABSOLUTE AUTO 0.08 K/mm3 (0.00-0.10); IMMATURE GRAN PERCENT AUTO 1 % (0-1); LYMPHOCYTES ABSOLUTE AUTO 0.44 K/mm3 (0.84-5.20); LYMPHOCYTES PERCENT AUTO 5 % (21-46); MONOCYTES ABSOLUTE AUTO 0.37 K/mm3 (0.16-1.47); MONOCYTES PERCENT AUTO 4 % (4-13); Mean Corpuscular HGB 33.7 pg (26.0-34.0); Mean Corpuscular Volume 99 fL (80-100); Mean Platelet Volume 9.4 fL (9.1-12.4); NEUTROPHILS PERCENT AUTO 91 % (41-73); Platelet Count 107 K/mm3 (150-400); RDW Coefficient Variation 12.7 % (11.7-14.2); RDW Standard Deviation 45.4 fL (35.1-46.3); Red Blood Cell Count 3.32 M/mm3 (4.30-5.90); White Blood Cell Count 9.81 K/mm3 (4.00-11.30)
[2018-10-05 13:16] LABS: Albumin, Blood 2.7 g/dL (3.4-5.0); Albumin/Globulin Ratio 0.7 (0.8-1.8); Bilirubin, Total 0.8 mg/dL (0.1-1.0); Bun/Creatinine Ratio 17.9 (12.0-20.0); Calcium, Blood 7.6 mg/dL (8.5-10.1); Creatinine, Blood 1.45 mg/dL (0.60-1.20); Globulin, Blood 3.7 g/dL (2.2-4.0); Potassium, Blood 3.3 mmol/L (3.5-5.5); Total Protein, Blood 6.4 g/dL (6.4-8.2)
== END 2018-10-05 14:40 | disposition home or self-care (01) ==
LOC: ER 12:25
PROVIDERS: Emergency Medicine
DX: R56.9 Unspecified convulsions (principal); E87.6 Hypokalemia; Z88.8 Allergy status to other drugs, medicaments and biological substances; Z79.899 Other long term (current) drug therapy
CPT/HCPCS: 70450; 80053; 85025; 93005; 93010; 96374; 96375; 99285-25; J1642; J2765; J3010

== ENCOUNTER 2018-10-10 10:12 | Inpatient (IN) | payer MEDICARE, OTHER ==
[~2018-10-10] VITALS: Ht 175.3 cm; Wt 82.6 kg
[2018-10-10 14:33] LABS: Hematocrit 30.4 % (37.0-53.0); Mean Corpuscular HGB 33.1 pg (26.0-34.0); Mean Corpuscular HGB Conc 32.9 g/dL (31.5-36.5); Mean Corpuscular Volume 101 fL (80-100); Mean Platelet Volume 9.9 fL (9.1-12.4); Platelet Count 128 K/mm3 (150-400); RDW Coefficient Variation 13.2 % (11.7-14.2); RDW Standard Deviation 48.7 fL (35.1-46.3); Red Blood Cell Count 3.02 M/mm3 (4.30-5.90); White Blood Cell Count 14.29 K/mm3 (4.00-11.30)
[2018-10-10 14:48] LABS: Albumin, Blood 2.3 g/dL (3.4-5.0); Albumin/Globulin Ratio 0.5 (0.8-1.8); Bilirubin, Total 1.2 mg/dL (0.1-1.0); Bun/Creatinine Ratio 14.6 (12.0-20.0); Calcium, Blood 7.2 mg/dL (8.5-10.1); Creatinine, Blood 2.39 mg/dL (0.60-1.20); Globulin, Blood 4.2 g/dL (2.2-4.0); Potassium, Blood 4.3 mmol/L (3.5-5.5); Total Protein, Blood 6.5 g/dL (6.4-8.2)
[2018-10-10] MEDS ORDERED: **INCOMPLETE MED REC (15:11)
[2018-10-10 15:15] LABS: BAND PERCENT MAN 15 % (0-8); BASOPHILS PERCENT MAN 0 % (0-2); EOSINOPHILS PERCENT MAN 0 % (0-6); LYMPHOCYTES ABSOLUTE MAN 0.14 K/mm3 (0.84-5.20); LYMPHOCYTES PERCENT MAN 1 % (21-46); METAMYELOCYTE ABSOLUTE MAN 0.14 K/mm3 (0.00-0.00); METAMYELOCYTE PERCENT MAN 1 % (0-0); MONOCYTES ABSOLUTE MAN 0.57 K/mm3 (0.16-1.47); MONOCYTES PERCENT MAN 4 % (4-13); NEUTROPHILS ABSOLUTE MAN 13.43 K/mm3 (1.96-9.15); SEG NEUTROPHILS PERCENT MAN 79 % (41-73); TOTAL CELLS COUNTED 100
[2018-10-10] MEDS ORDERED: MORPHINE SULFA100 MG PO (15:56)
[2018-10-10] MEDS ORDERED: Norco 10-325 T1 EACH PO (15:59)
[2018-10-10] MEDS ORDERED: OXYC30 PO (16:00)
[2018-10-10] MEDS ORDERED: LEVSOD125 PO (16:01)
[2018-10-10] MEDS ORDERED: ACID REDUCER 1150 MG PO (16:02)
[2018-10-10] MEDS ORDERED: Omeprazole20 M1 PO (16:03)
[2018-10-10] MEDS ORDERED: NEBI10 PO (16:04)
[2018-10-10] MEDS ORDERED: ONDA8 PO (16:07)
[2018-10-10] MEDS ORDERED: Aspirin EC81 MG PO (16:08)
[2018-10-10] MEDS ORDERED: POTCHL20ER PO (16:09)
[2018-10-10] MEDS ORDERED: ALBU90OI6 INH (16:11)
[2018-10-10] MEDS ORDERED: PRED20 PO (16:13)
[2018-10-10] MEDS ORDERED: FURO20 PO (16:14)
--- NOTE | 2018-10-10 20:33 | NUR ---
PCU ADMIT PT BROUGHT TO PCU 13 BY PAUL FROM THE ER @ APPROX 2009 W/ ACCOMPANYING. PT ALERT, ABLE TO STAND AND TRANSFER TO PCU BED. PT NONVERBAL IN WHICH PT'S STATES D/T VOICE BOX REMOVAL IN 2012 RELATED TO PT HX OF THROAT CANCER. PT CAN COMMUNICATE W/ THE ASSISTANCE OF A HAND HELD DEVICE BEING PLACED OVER THROAT STOMA TO PRODUCE SOUND, OR USE WRITTEN COMMUNICATION. PT LUNG SOUNDS COARSE T/O, SPO2 > 90% ON 3L. PT HAS MEDIPORT THAT WAS ACCESSED IN ER. PT STATES PAIN IN BACK, NECK, AND HIP. PT BLE EDEMATOUS W/ L LEG NOTABLY MORE SWOLLEN. SCATTERED BRUISING T/O BODY. PT IN BED W/ AT BEDSIDE. PT'S PROVIDING PT HISTORY. WILL CONTINUE TO MONITOR AND PROVIDE CARE.
[2018-10-11 04:37] LABS: Hematocrit 28.4 % (37.0-53.0); Hemoglobin 9.4 g/dL (13.5-17.5); Mean Corpuscular HGB 33.7 pg (26.0-34.0); Mean Corpuscular HGB Conc 33.1 g/dL (31.5-36.5); Mean Corpuscular Volume 102 fL (80-100); Mean Platelet Volume 9.8 fL (9.1-12.4); Platelet Count 111 K/mm3 (150-400); RDW Coefficient Variation 13.3 % (11.7-14.2); Red Blood Cell Count 2.79 M/mm3 (4.30-5.90); White Blood Cell Count 12.15 K/mm3 (4.00-11.30)
[2018-10-11 04:45] LABS: Albumin/Globulin Ratio 0.5 (0.8-1.8); Bilirubin, Total 0.8 mg/dL (0.1-1.0); Bun/Creatinine Ratio 16.7 (12.0-20.0); Calcium, Blood 6.8 mg/dL (8.5-10.1); Creatinine, Blood 2.27 mg/dL (0.60-1.20); Globulin, Blood 3.9 g/dL (2.2-4.0); Potassium, Blood 4.2 mmol/L (3.5-5.5); Total Protein, Blood 5.9 g/dL (6.4-8.2); Uric Acid, Blood 10.3 mg/dL (3.5-7.2)
[2018-10-11 05:26] LABS: BAND PERCENT MAN 15 % (0-8); BASOPHILS PERCENT MAN 0 % (0-2); EOSINOPHILS PERCENT MAN 0 % (0-6); LYMPHOCYTES ABSOLUTE MAN 0.36 K/mm3 (0.84-5.20); LYMPHOCYTES PERCENT MAN 3 % (21-46); METAMYELOCYTE ABSOLUTE MAN 0.12 K/mm3 (0.00-0.00); METAMYELOCYTE PERCENT MAN 1 % (0-0); MONOCYTES ABSOLUTE MAN 0.36 K/mm3 (0.16-1.47); MONOCYTES PERCENT MAN 3 % (4-13); NEUTROPHILS ABSOLUTE MAN 11.29 K/mm3 (1.96-9.15); SEG NEUTROPHILS PERCENT MAN 78 % (41-73); TOTAL CELLS COUNTED 100
--- NOTE | 2018-10-11 05:37 | NUR ---
SHIFT SUMMARY PT A&0, NONVERBAL, ABLE TO COMMUNICATE NEEDS W/ MOUTHING WORDS, WRITING WORDS, OR HOLDING DEVICE UP TO THROAT STOMA TO PRODUCE SOUND FOR TALKING EFFECT. PT HX OF LARYNGEAL CANCER WHICH PT STATES LAST CHEMO THERAPY TO BE 8 WEEKS AGO. PT AWAITING MD MCKEON CONSULT IN AM. CONSULT CALLED TO ANSWERING SERVICE AT 0048 THIS AM. PT LUNG SOUNDS COARSE T/O. SPO2 > 92% ON 3L O2 VIA TRACH. PT HAVING OCCASSIONAL NONPRODUCTIVE COUGH. MONITOR SHOWS NSR/ST, HR 80-115. PT C/O 8/10 PAIN IN HIP, BACK AND NECK. PT STATES GOAL PAIN LEVEL TO BE 4/10. PT TX'D PER EMAR W/ LITTLE REDUCTION IN PAIN. SCATTERED BRUISING NOTED T/O BODY. BLE EDEMATOUS W/ L LEG NOTABLY MORE SWOLLEN THAN R. PT IN BED W/ CALL LIGHT IN REACH. WILL CONTINUE TO MONITOR AND PROVIDE CARE UNTIL REPORT OFF TO DAY SHIFT RN.
--- NOTE | 2018-10-11 08:00 | NUR ---
pt laying in bed, called for pain meds, a/ox3, pleasant and cooperative with care, follows commands well, only able to speak in whisper due to trach, very diff to understand, lungs are course t/o, resp even and unlabored, no cough noted, hrr, tele in place running sr per monitor, see strip, 3+ edema noted to b/l ankles, ppp faint, cap refill <3sec, vs stable, low grade temp, mediport to right chest wall, infusing ns as ordered, btx4, abd flat soft nontender, voids without diff, skin c/w/d, maed, main, call light in reach.
--- NOTE | 2018-10-11 11:21 | NUR ---
at bedside, pt requesting pain meds. this was given, explained that bystolic was stopped and coreg was started, was not happy with that, wanted to know who ordered that. will wait until she can speak with before giving it. vs stable, low grade temp. call light in reach.
--- NOTE | 2018-10-11 18:48 | NUR ---
PT HAS REQUESTED PAIN MEDS FREQ TODAY, HE SAYS HE'S IN ABOUT THE SAME AMOUNT OF PAIN HE IS IN AT HOME. HE IS ABLE TO STAND AND AMBULATE INTO THE [facility] INDEPT. NO ACUTE CHANGES THIS SHIFT. CALL LIGHT IN REACH.
--- NOTE | 2018-10-11 19:58 | NUR ---
PM NOTE. ASSUMED CARE OF PT APROX 1900, PT WAS ADMITTED DUE TO PNA, PT HAS HX OF CANCER, LAST CHEMO TREATMENT WAS 8 WEEKS AGO PER REPORT. TELE INTACT, NSR IN THE 80'S PER ELECTRICAL APPRENTICE, PT'S BP 134/93. 3+ PITTING EDEMA NOTED ON THE BLE. PT'S L/S COARSE T/O, PT HAS THICK GREEN SPUTUM THAT PT IS ABLE TO COUGH UP OCC THOUGH HIS STOMA. PT'S BT ARE PRESENT AND HYPOACTIVE, ABD IS SOFT AND NONTENDER TO PALP. PT HAS CHRONIC PAIN AND IS TREATED PER EMAR. CALL LIGHT IN REACH, BED IS LOCKED AND LOW WILL CONTINUE TO MONITOR.
[2018-10-12 04:10] LABS: Hematocrit 30.4 % (37.0-53.0); Hemoglobin 10.1 g/dL (13.5-17.5); Mean Corpuscular HGB Conc 33.2 g/dL (31.5-36.5); Mean Corpuscular Volume 102 fL (80-100); Mean Platelet Volume 10.3 fL (9.1-12.4); Platelet Count 93 K/mm3 (150-400); RDW Coefficient Variation 13.4 % (11.7-14.2); RDW Standard Deviation 50.8 fL (35.1-46.3); Red Blood Cell Count 2.97 M/mm3 (4.30-5.90); White Blood Cell Count 12.02 K/mm3 (4.00-11.30)
[2018-10-12 04:24] LABS: Albumin, Blood 1.9 g/dL (3.4-5.0); Anion Gap 8 mmol/L (6-16); Blood Urea Nitrogen 41 mg/dL (8-24); CO2, Blood 27 mmol/L (21-32); Calcium, Blood 6.8 mg/dL (8.5-10.1); Chloride, Blood 96 mmol/L (98-108); Creatinine, Blood 1.78 mg/dL (0.60-1.20); Glomerular Filtration Rate 42 (60-); Glucose, Blood 135 mg/dL (70-99); Phosphorus, Blood 2.7 mg/dL (2.5-4.9); Potassium, Blood 4.3 mmol/L (3.5-5.5); Sodium, Blood 131 mmol/L (136-145)
[2018-10-12 04:29] LABS: BAND PERCENT MAN 13 % (0-8); BASOPHILS PERCENT MAN 0 % (0-2); EOSINOPHILS PERCENT MAN 0 % (0-6); LYMPHOCYTES ABSOLUTE MAN 0.12 K/mm3 (0.84-5.20); LYMPHOCYTES PERCENT MAN 1 % (21-46); METAMYELOCYTE ABSOLUTE MAN 0.12 K/mm3 (0.00-0.00); METAMYELOCYTE PERCENT MAN 1 % (0-0); MONOCYTES ABSOLUTE MAN 0.24 K/mm3 (0.16-1.47); MONOCYTES PERCENT MAN 2 % (4-13); NEUTROPHILS ABSOLUTE MAN 11.53 K/mm3 (1.96-9.15); SEG NEUTROPHILS PERCENT MAN 83 % (41-73); TOTAL CELLS COUNTED 100
--- NOTE | 2018-10-12 06:47 | NUR ---
SHIFT SUMMARY. NO ACUTE CHANGES NOTED THIS SHIFT. PT'S VS HAVE BEEN STABLE T/O SHIFT. PT'S LEFT ARM IS NOTED TO HAVE SEVERE EDEMA, THIS WAS NOT NOTED DURING ASSESSMENT AT THE START OF THIS SHIFT. PT HAS BEEN SBA TO THE BATHROOM. PT HAS RENAL ULTRA SOUND ORDERED FOR THIS AM, PT HAS BEEN NPO FOR 4 HOURS PER US INSTRUCTIONS. PT'S IS GOING TO BRING IN HIS HOME MEDICATION BYSTOLIC THIS AM. CALL LIGHT IN REACH, BED IS LOCKED AND LOW WILL CONTINUE TO MONITOR UNTIL REPORT IS GIVEN TO ONCOMING RN.
--- NOTE | 2018-10-12 08:00 | NUR ---
PT LAYING IN BED AWAKE WATCHING TV, A/OX3, PLEASANT AND COOPERATIVE WITH CARE, FOLLOWS COMMANDS WELL, STATES PAIN IS ALWAYS 7-8 PAIN MEDS GIVEN, LUNGS ARE COURSE DIM IN BASES, RESP EVEN AND UNLABORED, HAS A PRODUCTIVE COUGH AT TIMES, IS ON A BLOW BY FOR TRACH, SATS ARE 91-92%, VS STABLE, HRR, TELE IN PLACE RUNNING SR PER MONITOR, SEE STRIP, 3+ EDEMA NOTED TO B/L LE, PPP FAINT, CAP REFILL, BTX4, ABD FLAT SOFT NONTENDER, VOIDS WITHOUT DIFF, SKIN C/W/D MAEW, COLEMAN, CALL LIGHT IN REACH.
--- NOTE | 2018-10-12 13:30 | NUR ---
PT DOING OK, NO NEEDS OR CHANGES. CALL LIGHT IN REACH.
--- NOTE | 2018-10-12 18:32 | NUR ---
PT RESTING BETTER TODAY, GOING LONGER WITHOUT PAIN MEDS. NO FURHTER NEEDS, CALL LIGHT IN REACH.
--- NOTE | 2018-10-12 20:30 | NUR ---
PM NOTE. ASSUMED CARE OF PT APROX 1900, PT IS A&O AND SBA IN THE ROOM, PT IS ABLE TO REPOSITION HIMSELF IN BED PRN. PT'S LEFT ARM IS VERY EDEMATOUS 3+, PT DENIES PAIN TO THE LIMB, NO REDNESS OR WARMTH IS FELT. TELE INTACT, NSR IN THE 80'S PER PET SITTER, PT'S BP 133/91, PT HAS 1+ PITTING EDEMA BLE, PT'S FACE IS ALSO VERY SWOLLEN IN APPEARENCE, PT IS ON HYDRAULIC ELEVATOR CONSTRUCTOR STEROIDS FOR NECK/THROAT CANCER. L/S COARSE T/O, PT ON RA W/STATS >90%. BT PRESENT AND HYPOACTIVE, ABD IS SOFT AND NONTENDER TO PALP. ULCERATION WAS NOTED AROUND THE PT'S TRACH STOMA. CALL LIGHT IN REACH, BED IS LOCKED AND LOW WILL CONTINUE TO MONITOR.
--- NOTE | 2018-10-13 06:45 | NUR ---
SHIFT SUMMARY. PT HAS BEEN AGITATED THIS SHIFT AND MORE IMPULSIVE, BED ALARM HAS BEEN ON DUE TO PT'S JUMPING OUT OF BED WITHOUT CALLING STAFF TO ASSIST. PT HAS HAD MOMENTS OF SEVERE AGITATION AND FRUSTRATION, PT WAS UNABLE TO COMMUNICATE WHAT WAS CAUSING THIS AGITATION AND ANXEITY. PT TOLD THIS RN THAT HE DID NOT WANT ANYTHING FROM THE PROVIDERS TO HELP WITH ANXEITY. PT FEELS THAT HIS PAIN IS NOT WELL CONTROLLED AT THIS TIME AND THIS COULD BE A FACTOR. PT CALMED DOWN AND WAS ABLE TO RELAX AFTER APROX 2 HOURS. CALL LIGHT IN REACH, BED IS LOCKED AND LOW W/BED ALARM ON. PT DENIES ANY CHEST PAIN/PRESSURE.
--- NOTE | 2018-10-13 17:29 | NUR ---
NOTE PT ALERT, ORIENTED. COOPERATIVE WITH CARE. COPIOUS AMOUNT OF WHITE/YELLOW SPUTUM FROM STOMA. SKIN AROUND STOMA FRAGILE AND RED FROM WIPING SPUTUM OFF OF CHEST. VSS. PT UP TO BATHROOM WITH SBA. GAIT STEADY. PT SHAKEY AFTER RETURNING TO BED. RIGHT CHEST MEDIPORT ACCESSED AND INFUSING KVO FOR ANTIBIOTICS. LEFT ARM SWELLING DECREASED FROM THIS MORNING. ENCOURAGED PT TO USE HIS ARM. MENTIONED THE SWELLING TO DR BRAND. NO ORDERS. PT DENIED PAIN, NUMBNESS OR TINGLING TO LEFT ARM/HAND. EATING WELL. BROUGHT IN MEATLOAF AND MASHED POTATOES FOR LUNCH. PT MEDICATED FOR RIGHT FACIAL/NECK PAIN PER HOME ROUTINE. CONTINUE POT.
--- NOTE | 2018-10-13 19:40 | NUR ---
PM NOTE. ASSUMED CARE OF PT APROX 1900, PT IS A&O BUT HAS BED ALARM ON DUE TO NOT USING THE CALL LIGHT APPROPRIATELY. PT'S TREMORS APPEAR TO HAVE INCREASED SINCE LAST HOISTER. TELE INTACT, NSR IN THE 90'S, PT'S BP 161/95. 2+ PITTING EDEMA NONTED TO THE PT'S BLE, AND LEFT ARM. L/S COARSE T/O WITH SCATTERED CRACKELS. BT PRESENT AND HYPOACTIVE, ABD IS SOFT AND NONTENDER TO PALP. PT'S MEDIPORT IS ACCESSED AND HAS NS AT TKO. CALL LIGHT IN REACH, BED IS LOCKED AND LOW WITH BED ALARM ON, WILL CONTINUE TO MONITOR.
--- NOTE | 2018-10-13 21:30 | NUR ---
PT UPDATE... PROVIDER WAS CALLED DUE TO PT'S HYPERTENSION (167/121) AND 2+ PITTING EDEMA. PT IS ALSO COMPLAINING OF SEVERE HEADACHE AT THIS TIME WELL. ORDERS WERE OBTAINED FOR ANTIHYPERTENSIVE MEDICATIONS PRN FOR SBP >160 AND DBP >90. PT REFUSED TO TAKE THE BP MEDICATIONS, PT WAS EDUCATED ON THE RISKS OF HTN, PT STATED HIS UNDERSTANDING BUT STILL REFUSED.
--- NOTE | 2018-10-14 03:14 | NUR ---
PT UPDATE.. THIS RN HAS NOTICED A CHANGE IN THIS PT'S MENTATION, PT APPEARS TO BE SLIGHTLY CONFUSED. FOR EXAMPLE: PT WAS IN THE BATHROOM USING THE URINAL, THIS RN HAD CHECKED ON THE PT AND NOTICED THAT HE WAS TRYING TO TIE THE IV TUBING THAT IS RUNNING INTO HIS MEDIPORT AROUND THE NECK OF THE URINAL AND TIE THE TUBING INTO KNOTS, PT HAD A BLANK LOOK AND HE WAS STARING INTO SPACE AT THIS TIME. WHEN PT WAS ASKED WHAT HE WAS DOING THE PT APPEARED TO "SNAP OUT OF IT" AND INDICATED THAT HE DID NOT KNOW WHY HE WAS DOING IT. OTHER TIMES T/O THE NIGHT THE PT HAS APPEARED TO BE STARING OFF INTO SPACE AND THE PT WILL ONLY RESPOND WHEN SOMETHING ENTERS HIS FIELD OF VISON. PT IS ALSO MORE WEAK THAN EARLIER THIS SHIFT, HE APPEARES SLIGHTLY MORE PALE AND PT INDICATES THAT HE DOES NOT FEEL "RIGHT". PT'S VS HAVE BEEN STABLE: 154/97, HR 97, RR 20 TEMP 98.9, 02 STAT 92% RA. CALL LIGHT IN REACH, BED ALARM IS ON, WILL CONTINUE TO MONITOR.
[2018-10-14 04:26] LABS: BASOPHILS ABSOLUTE AUTO 0.01 K/mm3 (0.00-0.23); BASOPHILS PERCENT AUTO 0 % (0-2); EOSINOPHILS PERCENT AUTO 0 % (0-6); Hematocrit 31.8 % (37.0-53.0); Hemoglobin 9.9 g/dL (13.5-17.5); IMMATURE GRAN ABSOLUTE AUTO 0.24 K/mm3 (0.00-0.10); IMMATURE GRAN PERCENT AUTO 3 % (0-1); LYMPHOCYTES ABSOLUTE AUTO 0.29 K/mm3 (0.84-5.20); LYMPHOCYTES PERCENT AUTO 3 % (21-46); MONOCYTES ABSOLUTE AUTO 0.43 K/mm3 (0.16-1.47); MONOCYTES PERCENT AUTO 5 % (4-13); Mean Corpuscular HGB 32.9 pg (26.0-34.0); Mean Corpuscular HGB Conc 31.1 g/dL (31.5-36.5); Mean Platelet Volume 10.7 fL (9.1-12.4); NEUTROPHILS ABSOLUTE AUTO 8.69 K/mm3 (1.96-9.15); NEUTROPHILS PERCENT AUTO 90 % (41-73); NRBC ABSOLUTE 0.02 K/mm3 (0.00-0.02); NRBC Auto 0.2 /100 WBC (0.0-0.2); Platelet Count 134 K/mm3 (150-400); RDW Coefficient Variation 14.3 % (11.7-14.2); Red Blood Cell Count 3.01 M/mm3 (4.30-5.90); White Blood Cell Count 9.66 K/mm3 (4.00-11.30)
[2018-10-14 04:27] LABS: Mean Corpuscular Volume 106 fL (80-100)
[2018-10-14 04:47] LABS: Anion Gap 13 mmol/L (6-16); Blood Urea Nitrogen 57 mg/dL (8-24); Bun/Creatinine Ratio 25.6 (12.0-20.0); CO2, Blood 22 mmol/L (21-32); Calcium, Blood 6.9 mg/dL (8.5-10.1); Chloride, Blood 103 mmol/L (98-108); Creatinine, Blood 2.23 mg/dL (0.60-1.20); Glomerular Filtration Rate 30 (60-); Glucose, Blood 115 mg/dL (70-99); Phosphorus, Blood 3.5 mg/dL (2.5-4.9); Potassium, Blood 5.5 mmol/L (3.5-5.5); Sodium, Blood 138 mmol/L (136-145)
[2018-10-14 04:51] LABS: Albumin, Blood 2.2 g/dL (3.4-5.0)
--- NOTE | 2018-10-14 06:16 | NUR ---
SHIFT SUMMARY. NO ACUTE CHANGES NOTED SINCE PREVIOUS NOTES. PT HAS BEEN HYPERTENSIVE AND WAS MEDICATE PER EMAR. PT HAS REFUSED ALL SHON CARE, SKIN CARE AND SKIN ASSESSMENT TO THE GROIN/COCCYX AREA. PT BECAME VERY AGITATED WHEN THIS RN ATTEMPTED TO ASSESS HIS SKIN. PT HAS BEEN VERY LETHARGIC AND WEAK THIS SHIFT, PT HAS NEEDED A 2 PERSON ASSIST TO STAND TO USE THE URINAL AT TIMES. PT HAS BEEN DRIFTING OFF AND "SPACING OUT" CONSTANTLY UNLESS HE IS BEING PHYSICALLY TOUCHED OR IN DIRECT CONVERSATION. CALL LIGHT IN REACH, BED IS LOCKED AND LOW WILL CONTINUE TO MONITOR UNTIL REPORT IS GIVEN TO ONCOMING RN.
[2018-10-15 04:12] LABS: BASOPHILS ABSOLUTE AUTO 0.03 K/mm3 (0.00-0.23); BASOPHILS PERCENT AUTO 0 % (0-2); EOSINOPHILS PERCENT AUTO 0 % (0-6); Hemoglobin 9.9 g/dL (13.5-17.5); IMMATURE GRAN ABSOLUTE AUTO 0.49 K/mm3 (0.00-0.10); IMMATURE GRAN PERCENT AUTO 5 % (0-1); LYMPHOCYTES ABSOLUTE AUTO 0.36 K/mm3 (0.84-5.20); LYMPHOCYTES PERCENT AUTO 4 % (21-46); MONOCYTES ABSOLUTE AUTO 0.37 K/mm3 (0.16-1.47); MONOCYTES PERCENT AUTO 4 % (4-13); Mean Corpuscular HGB 32.9 pg (26.0-34.0); Mean Corpuscular HGB Conc 30.9 g/dL (31.5-36.5); Mean Corpuscular Volume 106 fL (80-100); Mean Platelet Volume 10.5 fL (9.1-12.4); NEUTROPHILS ABSOLUTE AUTO 7.76 K/mm3 (1.96-9.15); NEUTROPHILS PERCENT AUTO 86 % (41-73); NRBC ABSOLUTE 0.02 K/mm3 (0.00-0.02); NRBC Auto 0.2 /100 WBC (0.0-0.2); Platelet Count 134 K/mm3 (150-400); RDW Coefficient Variation 14.6 % (11.7-14.2); RDW Standard Deviation 57.3 fL (35.1-46.3); Red Blood Cell Count 3.01 M/mm3 (4.30-5.90); White Blood Cell Count 9.01 K/mm3 (4.00-11.30)
[2018-10-15 04:32] LABS: BAND PERCENT MAN 3 % (0-8); BASOPHILS PERCENT MAN 0 % (0-2); EOSINOPHILS PERCENT MAN 0 % (0-6); LYMPHOCYTES ABSOLUTE MAN 0.27 K/mm3 (0.84-5.20); LYMPHOCYTES PERCENT MAN 3 % (21-46); METAMYELOCYTE ABSOLUTE MAN 0.09 K/mm3 (0.00-0.00); METAMYELOCYTE PERCENT MAN 1 % (0-0); MONOCYTES ABSOLUTE MAN 0.09 K/mm3 (0.16-1.47); MONOCYTES PERCENT MAN 1 % (4-13); NEUTROPHILS ABSOLUTE MAN 8.55 K/mm3 (1.96-9.15); SEG NEUTROPHILS PERCENT MAN 92 % (41-73); TOTAL CELLS COUNTED 100
[2018-10-15 04:45] LABS: Albumin, Blood 2.3 g/dL (3.4-5.0); Albumin/Globulin Ratio 0.5 (0.8-1.8); Bilirubin, Total 0.6 mg/dL (0.1-1.0); Bun/Creatinine Ratio 30.4 (12.0-20.0); Calcium, Blood 6.8 mg/dL (8.5-10.1); Creatinine, Blood 1.91 mg/dL (0.60-1.20); Globulin, Blood 4.6 g/dL (2.2-4.0); Potassium, Blood 5.4 mmol/L (3.5-5.5); Total Protein, Blood 6.9 g/dL (6.4-8.2)
--- NOTE | 2018-10-15 05:54 | NUR ---
SHIFT SUMMARY PT MEDICAL NO TELE STATUS. PT ALERT, NONVERBAL, ABLE TO COMMUNICATE NEEDS BY MOUTHING WORDS, WRITING ON PAPER, OR USING ASSISTIVE DEVICE HELD OVER TRACH STOMA TO PRODUCE SOUND. PT C/O 7-10/10 PAIN IN BACK OF NECK, HIP, AND BACK T/O SHIFT. PT TX'D PER EMAR. PT HYPERTENSIVE, W/ SYS BP > 160 TX'D PER EMAR. OTHERWISE VSS. BLE EDMEATOUS W/ L LEG MORE SWOLLEN THAN R LEG. PT'S L ARM EDEMATOUS, ELEVATED W/ PILLOWS. PT FOUND TO BE DRINKING WHISKEY IN COCA COLA BOTTLE IN ROOM. PT ADMITTED TO HAVING WHAT HE MEASURED 1-2 INCHES IN HIS SODA BOTTLE AND STATED IT TO BE ERIN ESPINZOA. PT STATES THIS TO BE HIS USUAL HOME ALCOHOL CONSUMPTION AND STATES HIS MEDICATION REGIMEN TO BE THE SAME AT HOME IN THE HOSPITAL WELL. MD CHRIS NOTIFIED OF ALCOHOL USE AND STATES OKAY FOR ALLOWANCE OF PT TO CONTINUE HOME ALCOHOL CONSUMPTION OF STATED 1-2 INCH AMOUNT IN BOTTLE LONG NOT INTERFERING W/ PT TX AND CAUSING INTOXICATION. PT LYING IN BED W/ CALL LIGHT IN REACH. WILL CONTINUE TO MONITOR AND PROVIDE CARE UNTIL REPORT OFF TO DAY SHIFT RN. TO CONTINUE
--- NOTE | 2018-10-15 08:30 | NUR ---
INITIAL ASSESSMENT: Pt sitting up at edge of bed. Tremulus in all extrimities. States that he is having 9/10 pain in his neck and back (chronic pain). Will treat per orders. LS course throughout. BT positive. Pulses palp. HR sounds reg but tachy. Monitor shows HR in the 100's. BP elevated. Will treat per orders. Pt has edema throughout but more so on L side extrimities. IVF running into mediport per orders. Pt seems withdrawn and flat. Call light in reach. Will monitor.
--- NOTE | 2018-10-15 15:51 | NUR ---
UPDATE: Pt sitting at edge of bed. Tremulus. Pt at bedside and states "He has been drinking a lot more then I knew, I found a lot of empty Carlos Gabby bottles in the garage". Pt very quite and seems frusterated that he found these empty bottles. He is pulling at his IV line and seems to be having some visual hallucinations. When confronted, and when pt was assured he was not being judged by me, Pt did admit to drinking last night and states that he is having some visual hallucinations, a headache, he does have some itching and is tremulus. MERARI is an 8 at this time. Physician called. Will continue to monitor.
--- NOTE | 2018-10-15 17:33 | NUR ---
UPDATE: Pt sitting at edge of bed, seems confused and like he is hallucinating. Pt trying to smoke IV line. Pt tremulus and not following directions very well. Pt was layed down in bed with assistance, repositioned and bed alarm placed. During this time a bottle of Carlos Pierre was found tucked between pillows. This was removed and placed in belongings bag. PT was medicated with ativan for s/s of withdrawl. Will monitor.
--- NOTE | 2018-10-15 19:28 | NUR ---
SHIFT SUMMARY: Pt appears to be sleeping in bed comfortably. Be alarm on. Pt started to go through ETOH withdrawls today. CIWA was up to 8. Was treated with Ativan. At around 1720 when pt was repositioned into bed a bottle of Carlos Pierre was found tucked between pillows. This was removed and placed in Pt's belongings bag. When Pt's paige was called to tell her that he was not going to be moved, she stated to throw it away. BP has been elevated this shift. HR has been in the 90-110's. LS with wheezing and coarseness at times. Report given to night RN and care was transfered.
--- NOTE | 2018-10-15 19:50 | NUR ---
ASSUMED CARE PT IN ROOM SLEEPING COMFORTABLY. PER DAY SHIFT PT WAS FOUND TO HAVE BEEN DRINKING ALCOHOL IN ROOM, BROUGHT BY AN UNKOWN SOURCE. PER DAY SHIFT RN PROVIDER WAS CONSULTED ON ALCOHOL USE, PT DRINKS DAILY AT HOME. DAY SHIFT RN REPORTED PROVIDER OK WITH PT DRINKING SMALL AMOUNTS. PT SPOUSE WAS UPSET ABOUT DRINKIGN AND ASKED STAFF TO "THROW ALCOHOL AWAY". BOTTLE WAS KEPT IN ROOM BUT PLACED OUT OF PT REACH. CIWA PROTOCOL STARTED ON PT. CIWA SCORE PRIOR TO CHIFT CHAGE WAS 8, PT WWAS MEDICATED PER EMAR. SLEEPING PEACFULLY AT THIS TIME. SATS EVEN UNLABORED ON RA, SATS >90%. PT HAS STOMA TO THROAT FROM HX OF THROAT CANCER W/ SURGERY. PT HAS PRODUCTIVE COUGH W/ BROWN SPUTUM. BED ALARM ON. CALL LIGHT IN REACH.
[2018-10-16 04:11] LABS: BASOPHILS ABSOLUTE AUTO 0.01 K/mm3 (0.00-0.23); BASOPHILS PERCENT AUTO 0 % (0-2); EOSINOPHILS PERCENT AUTO 0 % (0-6); Hematocrit 29.4 % (37.0-53.0); Hemoglobin 9.1 g/dL (13.5-17.5); IMMATURE GRAN ABSOLUTE AUTO 0.31 K/mm3 (0.00-0.10); IMMATURE GRAN PERCENT AUTO 5 % (0-1); LYMPHOCYTES ABSOLUTE AUTO 0.29 K/mm3 (0.84-5.20); LYMPHOCYTES PERCENT AUTO 5 % (21-46); MONOCYTES ABSOLUTE AUTO 0.22 K/mm3 (0.16-1.47); MONOCYTES PERCENT AUTO 4 % (4-13); Mean Corpuscular HGB 33.2 pg (26.0-34.0); Mean Corpuscular Volume 107 fL (80-100); Mean Platelet Volume 9.7 fL (9.1-12.4); NEUTROPHILS PERCENT AUTO 86 % (41-73); NRBC ABSOLUTE 0.03 K/mm3 (0.00-0.02); NRBC Auto 0.5 /100 WBC (0.0-0.2); Platelet Count 96 K/mm3 (150-400); RDW Coefficient Variation 14.6 % (11.7-14.2); RDW Standard Deviation 57.6 fL (35.1-46.3); Red Blood Cell Count 2.74 M/mm3 (4.30-5.90); White Blood Cell Count 5.73 K/mm3 (4.00-11.30)
[2018-10-16 04:27] LABS: BAND PERCENT MAN 1 % (0-8); BASOPHILS PERCENT MAN 0 % (0-2); EOSINOPHILS PERCENT MAN 0 % (0-6); LYMPHOCYTES ABSOLUTE MAN 0.22 K/mm3 (0.84-5.20); LYMPHOCYTES PERCENT MAN 4 % (21-46); MONOCYTES ABSOLUTE MAN 0.05 K/mm3 (0.16-1.47); MONOCYTES PERCENT MAN 1 % (4-13); MYELOCYTE ABSOLUTE MAN 0.05 K/mm3 (0.00-0.00); MYELOCYTE PERCENT MAN 1 % (0-0); NEUTROPHILS ABSOLUTE MAN 5.38 K/mm3 (1.96-9.15); SEG NEUTROPHILS PERCENT MAN 93 % (41-73); TOTAL CELLS COUNTED 100
[2018-10-16 04:28] LABS: Albumin, Blood 2.2 g/dL (3.4-5.0); Albumin/Globulin Ratio 0.6 (0.8-1.8); Bilirubin, Total 0.9 mg/dL (0.1-1.0); Bun/Creatinine Ratio 30.8 (12.0-20.0); Calcium, Blood 6.7 mg/dL (8.5-10.1); Creatinine, Blood 1.56 mg/dL (0.60-1.20); Potassium, Blood 4.3 mmol/L (3.5-5.5); Total Protein, Blood 6.2 g/dL (6.4-8.2)
--- NOTE | 2018-10-16 05:46 | NUR ---
SHIFT SUMMARY PT SLEEPING IN ROOM COMFORTABLY. PT CONTINUED TO HAVE CIWA SCORES BETWEEN 3-9 T/O NIGHT. PT TOLERATING MEDICATIONS WELL. PT DID HAVE 2 EPISODES OF INCONTINENCE WHILE SLEEPING. ATTENDS IN PLACE. PT ABLE TO STAND AT BEDSIDE W/ SBA, VERY SHAKY ON FEET. WITH MEDICATIONS FOR WUITHDRAWL SYMPTOMS ON BOARD, PT HAS 2L NC VIA STOMA TO KEEP O2 SATS ABOVE 90%. PT WAS SUCTIONED BY RT DURING NIGHT DUE BUILD UP OF THICK BROWN SECRETIONS IN AIRWAY. PT WAS TOO LETHARGIC TO COUGH RESULTING IN LOW O2 SATS. AFTER SUCTIOING SATS INCREASED TO 95%. BED ALARM ON FOR SAFETY. CALL LIGHT IN REACH. PT DOES NOT USE CALL LIGHT APPROPRIATELY.
--- NOTE | 2018-10-16 08:20 | NUR ---
INITIAL ASSESSMENT: Pt resting in bed, dozing but wakes to soft touch and virbal stimulus. Pt oriented to self, place, time, but not very cooperative to answering questions. LS course with some wheezing in upper lobes, diminished in bases. HR reg. BT positive. Pt has CIWA of about 9 at this time, but drowsy. WIll medicate with AM meds. BP elevated, Other VSS. Edema throughout. WIll treat per orders.
--- NOTE | 2018-10-16 17:24 | NUR ---
SHift Summary: Pt has been dozing on and off through the shift. CIWA has been 4-9 when awake but pt has been drowsy. Pt has been coughing up thick brown/red sputum but is unable to clear all the way and has required suctioning 4 times. Pt has been able to stand at bedside to void multiple times. Has not called for assistance but has set off his bed alarm. Pt had one visitor today, his son-in-law. Spoke with him about someone brining in hard alchohol. Son-in-law states he doesn't know who is bringing it in. NO other changes this shift. WIll report to night RN.
--- NOTE | 2018-10-16 19:30 | NUR ---
ASSUMED CARE PT SLEEPING IN ROOM COMFORTABLY. PER DAY SHIFT PT HAS BEEN LETHARGIC DURING DAY AND SLEPT MUCH OF THE DAY. CIWA BETWEEN 1-8. NO OTHER ACUTE CHANGES. PT STILL IMPULSIVE IN ROOM, DOES NOT REMEMBER TO USE CALL LIGHT. APPEARS TO BE LESS ORIENTED TODAY THAN YESTERDAY. BED ALARM IS ON AND SIDE RAILS ARE UP FOR SAFETY PT STANDS W/O USING CALL LIGHT.
[2018-10-17 04:11] LABS: Hematocrit 26.6 % (37.0-53.0); Hemoglobin 8.1 g/dL (13.5-17.5); Mean Corpuscular HGB 32.8 pg (26.0-34.0); Mean Corpuscular HGB Conc 30.5 g/dL (31.5-36.5); Mean Corpuscular Volume 108 fL (80-100); Mean Platelet Volume 10.5 fL (9.1-12.4); NRBC ABSOLUTE 0.02 K/mm3 (0.00-0.02); NRBC Auto 0.3 /100 WBC (0.0-0.2); Platelet Count 74 K/mm3 (150-400); RDW Coefficient Variation 14.5 % (11.7-14.2); RDW Standard Deviation 56.4 fL (35.1-46.3); Red Blood Cell Count 2.47 M/mm3 (4.30-5.90); White Blood Cell Count 5.95 K/mm3 (4.00-11.30)
[2018-10-17 04:29] LABS: BAND PERCENT MAN 8 % (0-8); BASOPHILS PERCENT MAN 0 % (0-2); EOSINOPHILS PERCENT MAN 0 % (0-6); LYMPHOCYTES ABSOLUTE MAN 0.05 K/mm3 (0.84-5.20); LYMPHOCYTES PERCENT MAN 1 % (21-46); MONOCYTES ABSOLUTE MAN 0.23 K/mm3 (0.16-1.47); MONOCYTES PERCENT MAN 4 % (4-13); NEUTROPHILS ABSOLUTE MAN 5.65 K/mm3 (1.96-9.15); SEG NEUTROPHILS PERCENT MAN 87 % (41-73); TOTAL CELLS COUNTED 100
[2018-10-17 04:31] LABS: Alanine Aminotransfer (ALT/SGP 27 U/L (12-78); Albumin/Globulin Ratio 0.6 (0.8-1.8); Alk Phos 166 U/L (50-136); Anion Gap 7 mmol/L (6-16); Aspartate Aminotrans (AST/SGOT 34 U/L (12-37); Blood Urea Nitrogen 35 mg/dL (8-24); CO2, Blood 27 mmol/L (21-32); Calcium, Blood 6.6 mg/dL (8.5-10.1); Chloride, Blood 106 mmol/L (98-108); Creatinine, Blood 1.13 mg/dL (0.60-1.20); Globulin, Blood 3.5 g/dL (2.2-4.0); Glomerular Filtration Rate >60 (60-); Glucose, Blood 120 mg/dL (70-99); Potassium, Blood 4.3 mmol/L (3.5-5.5); Sodium, Blood 140 mmol/L (136-145); Total Protein, Blood 5.5 g/dL (6.4-8.2)
--- NOTE | 2018-10-17 05:04 | NUR ---
SHIFT SUMMARY PT SLEEPING IN ROOM COMFORTABLY. NO ACUTE CHANGES IN STATUS. PT HAS BEEN SLEEPY TONIGHT AND SLEPT THE MAJORITY OF THE SHIFT. PT WAKES TO VERBAL AND IS SLOW TO ANSWER QUESTIONS, DOES NOT TRY TO COMMUNICATE BEYOND SHAKING OR NODDING HEAD. CIWA SCORES RANGED FORM 4-8 TONIGHT. PT WAS MEDICATED PER EMAR. NOW SLEEPING COMFORTABLTY IN ROOM. ATTENDS IN PLACE C/D/I. NO BM THIS SHIFT. MEPILEX IN PLACE ON BUTTOCKS. O2 VIA NC IN STOMA 2L. SATS >92%. RESP EVEN UNLABORED, W/ OCCASIONAL PRODUCTIVE COUGH. STOMA HAS BROWN/RED THICK SPUTUM W/ COUGH. CALL LIGHT IN REACH. BED ALARM ON FOR SAFETY.
--- NOTE | 2018-10-17 09:00 | NUR ---
PT LAYING IN BED WITH EYES CLOSED RESP EVEN AND UNLABORED, DOES NOT ROUSE TO NAME, BUT IF I TOUCH HIM HE WILL OPEN EYES BUT IS NOT CONNECTING. NIGHT RN REPORTED THAT HE HAD ATIVAN THEY THINK HE IS WITHDRAWING, AND HAS BEEN SOMULANT SINCE, VS STABLE, O2 SATS GOOD, HIGH 90'S, IS COUGHING TRYING TO CLEAR AIRWAY, DOESN'T SOUND RIGHT, STOMA LOOKS BLACK, CALLED RT TO SUCTION, CATALINA CAME RIGHT AWAY AND SUCTIONED HIM, FOUND A BIOFILM COVERING THE STOMA, WITH A CLOT INSIDE, THIS WAS CLEANED AWAY, AND FOUND A TRICKLE OF RADHA BLOOD ON THE BACK OF THE STOMA, CALLED DR. GAO SHE ORDERED A ENT CONSULT WITH DR. ABRAHAM THIS WAS CALLED TO HIM, LUNGS ARE COURSE T/O WITH SOME WHEEZING, HAS 3 LITERS FLOWING IN STOMA, HAS A REGULAR COURSE COUGH, NOT REALLY BRINGING ANYTHING UP, HRR, TELE IN PLACE RUNNING SR IN THE 80'S, ANASARCA NOTED, 3+EDEMA NOTED TO B/L LE, CAP REFILL <3SEC, IV IS MEDIPORT INFUSING NS AT TKO, BTX4, ABD FLAT SOFT NONTENDER, WAS REPORTED HE VOIDS VIA URINAL, SKIN HAS BRUISING, NOT MOVING AT THIS TIME, JORDAN, CALL LIGHT IN REACH.
--- NOTE | 2018-10-17 12:30 | NUR ---
DR. ABRAHAM IN TO SEE PT, HE CAUTERIZED BLEED IN STOMA, PT DID NOT ROUSE DURRING PROCEDURE. CAME IN TO SEE HIM WHILE DR. ABRAHAM WAS HERE, HE SPOKE WITH HER ABOUT CODE STATUS, SHE BECAME VERY VERY UPSET, ASKED DR. GAO TO SPEAK WITH HER, SHE WAS CALM WHEN LEFT. PT CONDITION UNCHANGED. CALL LIGHT IN REACH.
[2018-10-17 13:48] LABS: Hematocrit 33.7 % (37.0-53.0); Hemoglobin 10.5 g/dL (13.5-17.5)
[2018-10-17 14:06] LABS: Magnesium, Blood 1.9 mg/dL (1.6-2.4)
--- NOTE | 2018-10-17 18:14 | NUR ---
TRANSFER- PT. TRANSFERRED INTO ICU 10 FROM [facility]. PT. AWAKE, ALERT, FOLLOWS SIMPLE COMMANDS. TRACH COLLAR AT 28% WITH SAO2 100%. STOMA CLEAN AND DRY AT THIS TIME. LUNGS SL. COARSE WITH OCC WHEEZE. RESP EVEN AND UNLABORED. MONITOR SHOWS SR WITH HR 90'S. SBP >150'S. BT ACTIVE. MEDIPORT ACCESSED AND NS INFUSING AT 10 ML/HR. SKIN WITH MULTIPLE ECCHYMOTIC AREAS, MEPLEX DRSG'S TO SHANDRA, FOREARMS,COCCYX, SHANDRA. HEELS.
--- NOTE | 2018-10-17 18:20 | NUR ---
PT HAS BECOME VERY BUSY, IMPULSIVE, STANDING AND VOIDING ON THE FLOOR, IS NOT FOLLOWING DIRECTIONS, HE PULLED HIS MEDIPORT, THIS WAS REPLACED, CHARGE NURSE CALLED DR. AGO AND RECIEVED ORDER TO TRANSFER HIM TO ICU FOR CLOSER OBS. A YOUNG MAN WAS IN THE ROOM, AND BECAME VERY AGGITATED, IT WAS EXPLAINED TO HIM HE NEEDS TO BE WATCHED CLOSER, HE CALMED DOWN. REPORT GIVEN TO HOLLY ENRI. TRANSFERED HIM VIA BED WITH ALL BELONGINGS, AND MEDICATIONS.
--- NOTE | 2018-10-17 23:38 | NUR ---
START OF SHIFT: REPORT FROM VENECIA RN. PT JUST RECENT TRANSFER FROM PCU TO ICU 10. PT APPEARED VERY DROWSY ONLY OPENING EYES TO VOICE AND PT'S NAME. PT ONLY FOLLOWING BASIC COMMANDS BUT VERY WEAKLY. PT IN BILATERAL SOFT WRIST RESTRAINTS SINCE HAVING PULLED OUT MEDIPORT TODAY WHICH WAS REPLACED AND INFUSING PPN. PT NEEDED SECOND IV WHICH SENIOR CREDIT ANALYST PLACED. PT WITH DRY HACKING COUGH WHICH WAS NOTED PRVIOUSLY TODAY IN DR KELLE. RT TO BEDSIDE T/O NOC THUS FAR PROVIDING PT WITH SUCTIONING WITH THICK DARK BROWN SPUTUM OUT. WHEN PT OUT OF RESTRAINTS FOR REPOSITIONING, PT WILL TRY TO SIT UP AND MOVE LEGS TO EDGE OF BED THEN PT FALL IMMEDIATELY BACK TO SLEEP WHEN LEFT ALONE. PT CONSTANTLY WITH A CHEWING MOTION, WHEN ORAL ASSESSED, PT WITH WHITE COATING TO TONGUE. QASIM LONG IN DEPT TO SEE OTHER PT AND CAME TO VERIFY THAT IT WAS, IN FACT, THRUSH AND TO PASS ON IN REPORT IN THE AM FOR DR. FELICIANO. PT ASPIRATION RISK AND NOT GIVEN PO MEDICATIONS. PT CONTINUES TO SLEEP. Q2 TURNS. PRN ATTENDS CHANGE AND SKIN CARE.
[2018-10-18 03:16] LABS: Hematocrit 27.9 % (37.0-53.0); Hemoglobin 8.8 g/dL (13.5-17.5); Mean Corpuscular HGB 33.2 pg (26.0-34.0); Mean Corpuscular HGB Conc 31.5 g/dL (31.5-36.5); Mean Platelet Volume 10.2 fL (9.1-12.4); NRBC ABSOLUTE 0.06 K/mm3 (0.00-0.02); NRBC Auto 0.6 /100 WBC (0.0-0.2); Platelet Count 68 K/mm3 (150-400); RDW Coefficient Variation 14.8 % (11.7-14.2); RDW Standard Deviation 57.9 fL (35.1-46.3); Red Blood Cell Count 2.65 M/mm3 (4.30-5.90); White Blood Cell Count 10.75 K/mm3 (4.00-11.30)
[2018-10-18 03:19] LABS: Mean Corpuscular Volume 105 fL (80-100)
[2018-10-18 03:32] LABS: Alanine Aminotransfer (ALT/SGP 29 U/L (12-78); Albumin/Globulin Ratio 0.5 (0.8-1.8); Alk Phos 154 U/L (50-136); Anion Gap 6 mmol/L (6-16); Aspartate Aminotrans (AST/SGOT 26 U/L (12-37); Bilirubin, Total 1.1 mg/dL (0.1-1.0); Blood Urea Nitrogen 25 mg/dL (8-24); Bun/Creatinine Ratio 25.8 (12.0-20.0); CO2, Blood 28 mmol/L (21-32); Chloride, Blood 104 mmol/L (98-108); Creatinine, Blood 0.97 mg/dL (0.60-1.20); Globulin, Blood 3.7 g/dL (2.2-4.0); Glomerular Filtration Rate >60 (60-); Glucose, Blood 213 mg/dL (70-99); Phosphorus, Blood 1.1 mg/dL (2.5-4.9); Potassium, Blood 3.9 mmol/L (3.5-5.5); Sodium, Blood 138 mmol/L (136-145); Total Protein, Blood 5.7 g/dL (6.4-8.2); Triglycerides 307 mg/dL (30-160)
[2018-10-18 03:47] LABS: BAND PERCENT MAN 5 % (0-8); BASOPHILS PERCENT MAN 0 % (0-2); EOSINOPHILS PERCENT MAN 0 % (0-6); LYMPHOCYTES ABSOLUTE MAN 0.21 K/mm3 (0.84-5.20); LYMPHOCYTES PERCENT MAN 2 % (21-46); METAMYELOCYTE PERCENT MAN 1 % (0-0); MONOCYTES ABSOLUTE MAN 0.21 K/mm3 (0.16-1.47); MONOCYTES PERCENT MAN 2 % (4-13); MYELOCYTE ABSOLUTE MAN 0.21 K/mm3 (0.00-0.00); MYELOCYTE PERCENT MAN 2 % (0-0); NEUTROPHILS ABSOLUTE MAN 9.99 K/mm3 (1.96-9.15); SEG NEUTROPHILS PERCENT MAN 88 % (41-73); TOTAL CELLS COUNTED 100
--- NOTE | 2018-10-18 06:24 | NUR ---
PT REMAINED SOMNOLENT T/O NOC AWAKENING TO VOICE BUT IMMEDIATELY FALLING BACK TO SLEEP. PT ORIENTED TO SELF BUT IS VERY WEAK WITH EFFORTS TO TRY AND TURN SELF FOR ATTENDS CHANGE. RESTRAINTS CONTINUED SINCE PT CONTINUES TO REACH UP AND PULL AT LINES. PT REMAINING IN BED WITHOUT EFFORTS OF TRYING TO GET OUT. PT WITH HTN T/O NOC REQUIRING DOSES OF HYDRALAZINE. NOTED WAS PT NOT HAVING A CLONIDINE PATCH ON SKIN AND WILL PASS ON TO DAY RN.
--- NOTE | 2018-10-18 08:00 | NUR ---
ASSUMED CARE OF PATIENT; SEE ASSESSMENT CHARTING FOR DETAILS. LUNGS COARSE T/O UPPER AIRWAYS; DIMINISHED IN BASES. AIRVO (HIGH FLOW) OXYGEN AT 8-9L/MIN; BIOX STAYING > 95%. DEPENDS IN PLACE D/T FREQUENT INCONTINENCE. NPO D/T SOMNOLENT STATUS; RECEIVED NO PAIN MED. T/O NIGHT, ETC. BUT DIFF. TO ROUSE AND BACK TO SLEEP WHEN NOT DISTURBED. EDEMA TO ALL EXTREM; ELEVATED ON PILLOWS. MEDIPORT INFUSING WITH PPN AT 95ML/HR. PHOS LEVEL ONLY 1.1; WILL INFORM HOSPITALIST.
--- NOTE | 2018-10-18 09:30 | NUR ---
DR. MEIER HERE; SEE ORDER. TO GIVE NA+ PHOS 20MMOL RIDER.
--- NOTE | 2018-10-18 10:30 | NUR ---
IV PLACED TO R HAND D/T NEED FOR MORE ACCESSES FOR IVPB'S AND IVP MEDS.; 20 G SECURED; WRIST RESTRAINTS IN PLACE.
--- NOTE | 2018-10-18 11:30 | NUR ---
PATIENT MANAGED TO PULL R HAND IV OUT WHEN RN AT LUNCH; RN CLEANED UP MESS AND PLACED DRESSING TO BLEEDING SITE. RESTRAINT SECURED MORE SNUGLY.
--- NOTE | 2018-10-18 12:30 | NUR ---
ANOTHER PERIPHERAL IV TO R HAND (DISTAL FROM PREVIOUS SITE); GOOD BLOOD RETURN AND FLUIDS/MEDS. INFUSING WITHOUT DIFFICULTY. COBAN USED TO SECURE IV, BETTER.
--- NOTE | 2018-10-18 18:00 | NUR ---
SUMMARY: PATIENT WITH LABILE NEURO STATUS BUT MOSTLY SOMNOLENT T/O DAY. MEDICATED X1 FOR INCREASED RESTLESSNESS (MS 4MG IVT). ABLE TO LET RN KNOW HE NEEDED TO VOID THIS AFTERNOON; RN HELD URINAL IN PLACE AND PATIENT VOIDED 125ML OF MED. YELLOW URINE. INCONTINENT MOST OF TIME; DEPENDS CHANGED PRN. NO ACUTE CHANGES. SPOUSE HERE MOST OF DAY; LEFT ABOUT AN HOUR AGO. WILL REPORT TO ONCOMING RN.
--- NOTE | 2018-10-19 01:18 | NUR ---
PT RESTING IN BED. DROWSY BUT WILL AROUSE, NOD YES OR NO, AND FOLLOW COMMANDS. HAS TRACH STOMA WITH TRACH COLLAR ON. PT C/O PAIN EARLIER IN THE SHIFT AND RECEIVED MORPHINE. PT NOW WILL SLEEP LONG HE IS NOT DISTURBED. NO SIGN OF DISTRESS.
[2018-10-19 03:35] LABS: Hematocrit 22.8 % (37.0-53.0); Hemoglobin 7.2 g/dL (13.5-17.5); Mean Corpuscular HGB 32.1 pg (26.0-34.0); Mean Corpuscular HGB Conc 31.6 g/dL (31.5-36.5); Mean Platelet Volume 11.6 fL (9.1-12.4); NRBC ABSOLUTE 0.02 K/mm3 (0.00-0.02); NRBC Auto 0.2 /100 WBC (0.0-0.2); RDW Coefficient Variation 14.5 % (11.7-14.2); RDW Standard Deviation 53.4 fL (35.1-46.3); Red Blood Cell Count 2.24 M/mm3 (4.30-5.90); White Blood Cell Count 8.63 K/mm3 (4.00-11.30)
[2018-10-19 03:43] LABS: Mean Corpuscular Volume 102 fL (80-100)
[2018-10-19 03:45] LABS: Platelet Count 40 K/mm3 (150-400)
[2018-10-19 03:52] LABS: Anion Gap 9 mmol/L (6-16); Blood Urea Nitrogen 22 mg/dL (8-24); Bun/Creatinine Ratio 24.6 (12.0-20.0); CO2, Blood 26 mmol/L (21-32); Calcium, Blood 6.6 mg/dL (8.5-10.1); Chloride, Blood 100 mmol/L (98-108); Creatinine, Blood 0.89 mg/dL (0.60-1.20); Glomerular Filtration Rate >60 (60-); Glucose, Blood 213 mg/dL (70-99); Magnesium, Blood 1.7 mg/dL (1.6-2.4); Phosphorus, Blood 2.5 mg/dL (2.5-4.9); Potassium, Blood 3.8 mmol/L (3.5-5.5); Sodium, Blood 135 mmol/L (136-145)
[2018-10-19 04:05] LABS: BAND PERCENT MAN 3 % (0-8); BASOPHILS PERCENT MAN 0 % (0-2); EOSINOPHILS PERCENT MAN 0 % (0-6); LYMPHOCYTES ABSOLUTE MAN 0.25 K/mm3 (0.84-5.20); LYMPHOCYTES PERCENT MAN 3 % (21-46); METAMYELOCYTE ABSOLUTE MAN 0.08 K/mm3 (0.00-0.00); METAMYELOCYTE PERCENT MAN 1 % (0-0); MONOCYTES ABSOLUTE MAN 0.17 K/mm3 (0.16-1.47); MONOCYTES PERCENT MAN 2 % (4-13); MYELOCYTE ABSOLUTE MAN 0.34 K/mm3 (0.00-0.00); MYELOCYTE PERCENT MAN 4 % (0-0); NEUTROPHILS ABSOLUTE MAN 7.76 K/mm3 (1.96-9.15); SEG NEUTROPHILS PERCENT MAN 87 % (41-73); TOTAL CELLS COUNTED 100
--- NOTE | 2018-10-19 05:30 | NUR ---
CALLED DR. CHRIS ABOUT CRITICAL LOW PLATELETS AND LOW H&H. NEW ORDERS FOR 1 UNIT PRBC'S RECEIVED.
--- NOTE | 2018-10-19 07:21 | NUR ---
SUMMARY PT RESTING IN BED. WILL OPEN EYE'S TO VOICE BUT IS DROWSY AND FALLS BACK TO SLEEP. DOES NOT APPEAR TO BE IN PAIN. WILL SLEEP WHEN UNDISTURBED. REMAINS ON TRACH COLLAR WITHOUT ISSUE. HAS ESTABLISHED STOMA. INCONT OF URINE AND ATTENDS CHANGED Q2HR AND REPOSITIONED. PT IS HELPING MORE WITH REPOSITIONING EACH TIME. NO SIGN OF DISTRESS THIS AM.
--- NOTE | 2018-10-19 07:45 | NUR ---
ASSUMED CARE OF PT. PT OPENS EYES TO VOICE. FOLLOWING COMMANDS. PT MOUTHS WORDS. PT IS DROWSY BUT ORIENTED. PT HAS A TRACHEAL STOMA. PT IS ON A TRACH COLLAR WITH 28% O2.
[2018-10-19 09:02] LABS: Lactate Dehydrogenase (Ld),Bld 486 U/L (100-240); Vancomycin, Trough 27.7 ug/mL (5.0-10.0)
--- NOTE | 2018-10-19 10:00 | NUR ---
DR. MEIER CAME INTO THE ROOM. TALKED TO PATIENT AND FAMILY. UPDATED HIM OF PT'S STATUS.
--- NOTE | 2018-10-19 10:25 | NUR ---
PT'S AT BEDSIDE. UPDATED HER OF PT'S STATUS. SHE HANDED AN INHALER TO THE PATIENT. SHE HAS STATED THAT IF PT'S PAIN MEDICATION WAS NOT RESUMED, THEN SHE WILL BRING PT'S OWN HOME MEDICATIONS AND GIVE IT TO HIM. EXPLAINED TO HER AND TO PATIENT THAT THE NURSING STAFF AND MEDICAL TEAM SHOULD BE AWARE OF WHAT MEDS PT IS RECEIVING SO THAT PT WILL NOT RECEIVE DOUBLE DOSES OF THE MEDICATION AND IF PT BECOMES UNRESPONSIVE WE WILL KNOW WHAT MEDS WERE GIVEN. THIS INFO WAS MENTIONED TO DR. MEIER.
--- NOTE | 2018-10-19 11:15 | NUR ---
BLOOD TRANSFUSION WITH [facility] WAS STARTED ORDERED. PT'S HAD MENTIONED THAT PT WANTS TO BE A FULL CODE. THIS NURSE CLARIFIED WITH THE PATIENT. PT IS ALERT AND ORIENTED AND STATED HE WANTS TO BE A DNR. HE HAD STATED THIS MANY TIMES.
--- NOTE | 2018-10-19 13:57 | NUR ---
Pt is alert, oriented to situation. is at bedside. Offered to help fill out a POLST with patient and . Deidre, , has been through this before and mentions that her mother just in the hospital here about 2 months ago. She was placed on comfort care. After the shares this she tells the patient, "This is your decision, if you want to keep all this crap (motions to IV pumps, medical equipment) then you can, but it is YOUR choice." Pt displays uncertainty. takes the POLST and reports that they will discuss his wishes again and fill it out if he wants to. Pt is not in any distress, he actually appears quite comfortable right now. Sofia, nurse, has explained pain medication schedule to them. Will remain available.
--- NOTE | 2018-10-19 17:31 | NUR ---
SHIFT SUMMARRY: PT IS STILL ON HUMIDIFIED AIR TRACH COLLAR. TRACHEAL STOMA IS DRY. PT HAS BEEN MOSTLY AWAKE THROUGHOUT THE DAY. PT WAS ABLE TO MANAGE EATING HIS MEALS TODAY. PT CURRENTLY IS FEEDING HIMSELF DINNER. PT'S PAIN MEDICATION HAS BEEN RESTARTED. PT IS CALM AND COOPERATIVE. STILL ON PPN. PT HAD RECEIVED A UNIT OF PRBC TODAY.
--- NOTE | 2018-10-19 17:43 | NUR ---
NOTIFIED DR. MEIER REGARDING PT'S ELEVATED BLOOD SUGAR. ORDERS RECEIVED. UPDATED HIM OF PT'S STATUS. INFORMED HIM THAT PT WAS ASLEEP AFTER RECEIVING HIS REGULAR DOSE OF PAIN MEDS BUT WAS NOT SOMNOLENT. IN FACT, PT IS FEEDING HIMSELF DINNER.
[2018-10-19 18:14] LABS: Vancomycin, Random 20.6 ug/mL
--- NOTE | 2018-10-19 19:15 | NUR ---
[place] of Care: Pt alert, sitting upright in bed watching tv. NON-verbal at baseline, but oriented x4. C/o pain to neck, back, and trach stoma, effectively managed with scheduled MS Contin. Trach collar to trach stoma, O2-96-98% on 25% FiO2, denies dyspnea or SOB. Medi-port to rt upper chest patent and intact, infusing PPN at 95ml/hr. Peripheral IV's x2 patent and intact. Using urinal in bed without difficulty. Call light in reach, makes needs known. Will continue to monitor for pain, comfort, safety.
[2018-10-20 04:37] LABS: Hematocrit 25.3 % (37.0-53.0); Hemoglobin 8.2 g/dL (13.5-17.5); Mean Corpuscular HGB 33.1 pg (26.0-34.0); Mean Corpuscular HGB Conc 32.4 g/dL (31.5-36.5); Mean Corpuscular Volume 102 fL (80-100); Mean Platelet Volume 10.7 fL (9.1-12.4); Platelet Count 63 K/mm3 (150-400); RDW Standard Deviation 56.4 fL (35.1-46.3); Red Blood Cell Count 2.48 M/mm3 (4.30-5.90); White Blood Cell Count 9.63 K/mm3 (4.00-11.30)
[2018-10-20 04:52] LABS: Anion Gap 6 mmol/L (6-16); Blood Urea Nitrogen 28 mg/dL (8-24); Bun/Creatinine Ratio 26.9 (12.0-20.0); CO2, Blood 29 mmol/L (21-32); Calcium, Blood 7.5 mg/dL (8.5-10.1); Chloride, Blood 99 mmol/L (98-108); Creatinine, Blood 1.04 mg/dL (0.60-1.20); Glomerular Filtration Rate >60 (60-); Glucose, Blood 215 mg/dL (70-99); Magnesium, Blood 1.8 mg/dL (1.6-2.4); Phosphorus, Blood 3.1 mg/dL (2.5-4.9); Potassium, Blood 4.1 mmol/L (3.5-5.5); Sodium, Blood 134 mmol/L (136-145); Vancomycin, Random 16.8 ug/mL
[2018-10-20 05:52] LABS: BAND PERCENT MAN 3 % (0-8); BASOPHILS PERCENT MAN 0 % (0-2); EOSINOPHILS PERCENT MAN 0 % (0-6); LYMPHOCYTES ABSOLUTE MAN 0.28 K/mm3 (0.84-5.20); LYMPHOCYTES PERCENT MAN 3 % (21-46); METAMYELOCYTE ABSOLUTE MAN 0.09 K/mm3 (0.00-0.00); METAMYELOCYTE PERCENT MAN 1 % (0-0); MONOCYTES ABSOLUTE MAN 0.19 K/mm3 (0.16-1.47); MONOCYTES PERCENT MAN 2 % (4-13); MYELOCYTE ABSOLUTE MAN 0.19 K/mm3 (0.00-0.00); MYELOCYTE PERCENT MAN 2 % (0-0); NEUTROPHILS ABSOLUTE MAN 8.85 K/mm3 (1.96-9.15); SEG NEUTROPHILS PERCENT MAN 89 % (41-73); TOTAL CELLS COUNTED 100
--- NOTE | 2018-10-20 06:41 | NUR ---
Shift Summary; Patient slept well throughout shift. Denies dyspnea/SOB, O2-94-98% on trach collar 28-35% FiO2. C/o pain to neck, back, and stoma effectively managed with routine MS Contin, and x1 prn dose of Oxycodone. Small to moderate amount of thick light brown secretions produced from trach stoma, needs suction yankauer to remove secretion. Med-port remains patent and intact. Voiding using urinal in bed. Makes needs known, refused most turns throughout shift, stating to be comfortable. Will continue to monitor until report to day shift RN.
--- NOTE | 2018-10-20 09:50 | NUR ---
0730-ASSUMED CARE OF PT. PT IS ALERT AND ORIENTED. PT IS ASKING FOR PAIN MEDICATION. EXPLAINED TO HIM THAT HE WILL RECEIVE WITH WHEN IT'S DUE. PT MOUTHS WORDS. 0830-BROUGHT IN PT'S BREAKFAST. DR. MEIER CAME BY TO SEE PT. UPDATED HIM OF PT'S STATUS. PT IS FEEDING BREAKFAST AT THIS TIME.
--- NOTE | 2018-10-20 10:01 | NUR ---
PT'S BROUGHT IN FOOD FROM [facility]. PT IS STILL EATING BREAKFAST AT THIS TIME.
--- NOTE | 2018-10-20 17:45 | NUR ---
SHIFT SUMMARY Assumed care of pt upon arrival to unit at 1546. Pt arrived on room air. Pt placed on trach collar with 7 LPM and 28% FiO2. Pt's in room until about 1715, when she stated she was leaving for the evening. Pt mouths words but provides no vocalization. Pt also utilizes pen and paper to express needs to staff. Bed in lowest position. Call light in reach. Pt denies need at this time. Will continue to closely monitor until care handoff and bedside report with oncoming RN.
--- NOTE | 2018-10-21 04:41 | NUR ---
SHIFT SUMMARY PT A&O, NONVERBAL AT BASELINE, ABLE TO COMMUNICATE NEEDS BY USING GESTURES, MOUTHING WORDS, OR WRITING. PT C/O PAIN T/O SHIFT, TX'D PER EMAR. MONITOR SHOWS SB/SR, HR 50'S-70'S. LUNG SOUNDS COARSE T/O, SPO2 > 90% ON 7L 28% FIO2 VIA TRACH COLLAR. VSS. BRUISING SCATTERED T/O BODY. BILAT LOWER EXTREMITIY AND L ARM EDEMATOUS. EXTREMITIES ELEVATED W/ PILLOWS. SCD'S ON. MEDIPORT HEPARIN LOCKED. WILL CONTINUE TO MONITOR AND PROVIDE CARE UNTIL REPORT OFF TO DAY SHIFT RN.
[2018-10-21 05:18] LABS: BASOPHILS ABSOLUTE AUTO 0.01 K/mm3 (0.00-0.23); BASOPHILS PERCENT AUTO 0 % (0-2); EOSINOPHILS PERCENT AUTO 0 % (0-6); Hematocrit 29.9 % (37.0-53.0); Hemoglobin 9.3 g/dL (13.5-17.5); IMMATURE GRAN ABSOLUTE AUTO 0.32 K/mm3 (0.00-0.10); IMMATURE GRAN PERCENT AUTO 4 % (0-1); LYMPHOCYTES ABSOLUTE AUTO 0.32 K/mm3 (0.84-5.20); LYMPHOCYTES PERCENT AUTO 4 % (21-46); MONOCYTES ABSOLUTE AUTO 0.26 K/mm3 (0.16-1.47); MONOCYTES PERCENT AUTO 3 % (4-13); Mean Corpuscular HGB 31.7 pg (26.0-34.0); Mean Corpuscular HGB Conc 31.1 g/dL (31.5-36.5); Mean Corpuscular Volume 102 fL (80-100); NEUTROPHILS ABSOLUTE AUTO 8.34 K/mm3 (1.96-9.15); NEUTROPHILS PERCENT AUTO 90 % (41-73); Platelet Count 87 K/mm3 (150-400); RDW Coefficient Variation 14.9 % (11.7-14.2); RDW Standard Deviation 55.1 fL (35.1-46.3); Red Blood Cell Count 2.93 M/mm3 (4.30-5.90); White Blood Cell Count 9.25 K/mm3 (4.00-11.30)
[2018-10-21 05:43] LABS: Anion Gap 9 mmol/L (6-16); Blood Urea Nitrogen 29 mg/dL (8-24); Bun/Creatinine Ratio 25.2 (12.0-20.0); CO2, Blood 28 mmol/L (21-32); Chloride, Blood 100 mmol/L (98-108); Creatinine, Blood 1.15 mg/dL (0.60-1.20); Glomerular Filtration Rate >60 (60-); Glucose, Blood 131 mg/dL (70-99); Phosphorus, Blood 3.2 mg/dL (2.5-4.9); Potassium, Blood 4.3 mmol/L (3.5-5.5); Sodium, Blood 137 mmol/L (136-145); Vancomycin, Random 21.2 ug/mL
--- NOTE | 2018-10-21 07:45 | NUR ---
BEGINNING OF SHIFT Assumed care of pt at 0700. Report received from Yelitza NERI. Pt on trach collar with 7 LPM and 28% FiO2. Pt awake in bed, watching TV. Shift assessment completed. Sinus rhtyhm per telemetry. Bed in lowest position. Call light in reach. Pt denies need at this time.
--- NOTE | 2018-10-21 14:24 | NUR ---
Spiritual care visit conducted. Patient was lying in bed and alert when I entered the room. I introduced myself and immediately learned that patient can't speak but can whisper words and use hand motions. I talked with patient about his current health condition and how he is holding up emotionally. We had a brief conversation and I asked patient if I could say a prayer for him and nodded affirmingly and whispered, "Yes." I provided prayer. After more encouraging conversation and patient thanking me, I left the room.
--- NOTE | 2018-10-21 19:49 | NUR ---
SHIFT SUMMARY No acute changes since shift assessment. Report given to oncoming RNLisandra. Pt continues to self-suction secretions. Repositions self in bed.
--- NOTE | 2018-10-22 04:07 | NUR ---
ASSUMED CARE AT 1900. PAIN MEDS GIVEN NEEDED. POST BP CHECK AND HR CHECK. ENC TO TURN COUGH AND DEEP BREATHE. AND VERY LITTLE MOTIVATION BUT COOPERATIVE WHEN ASKED. DID NOT GET OUT OF BED TONIGHT, AND STAYED AWAKE MOST OF NOC . DID FALL ASLEEP POST 10MG ROXICODONE, POOR APPETITE AND REQ COFFEE AND H2O . CLEANSED TRACH ORIFACE AND CRUSTY RESIDUAL MOISTENED OFF. TRACH COLLAR CONT W/ MIST. NOT OOB AND NO SOB NOTED.NO EVIDENCE OF DTS OR WITHDRAWAL..
--- NOTE | 2018-10-22 06:03 | NUR ---
SHIFT SUMMARY./ NO CHANGE FROM, PREVIOUS NOTE. REQUESTS PAIN MED POST 1.5 HR FROM LAST PO MED. HAD FINALLY BED SLEEPING AND AWAKENED NOT KNOWING HE HAD RECENTLY HAD MED. AWARE OF NEXT MED DUE 0900. AGREES THIS IS NOT A PROBLEM. CONSTANTLY REMINDED TO GET OFF BACK.A LOT OF MOIST COUGHING AND A USUALLY DOES NOT SX W/ ANGIE.
[2018-10-22 09:50] LABS: Vancomycin, Trough 22.5 ug/mL (5.0-10.0)
--- NOTE | 2018-10-22 17:43 | NUR ---
SHIFT SUMMARY No acute changes since shift assessment. Discussed plan of care with Dr Ayala Webber. Provider aware that pt is on 28% FiO2. Pt wears trach collar at home with 2 LPM. Pt OOB to use chair. Sat up in chair for about four hours. Dr Ayala Webber notified when was at bedside, so he could speak to her. Bed in lowest position. Call light in reach. Will continue to closely monitor until care handoff and bedside report with oncoming RN.
--- NOTE | 2018-10-23 04:32 | NUR ---
SHIFT SUMMARY: PATIENT UNHAPPY THAT HYDROMORPHONE IS NOT PART OF HIS PAIN MEDICATION ROTATION. PATIENT USING BOTH ORAL AND IV PRN MEDICATION DESPITE EDUCATION ON USING IV MEDICATIONS PRIOR TO DISCHARGE. NO OTHER ISSUES NOTED, LARGE BMX1, VSS, CALL LIGHT WITHIN REACH, BED LOW AND LOCKED.
[2018-10-23 06:37] LABS: Vancomycin, Random 15.2 ug/mL
[2018-10-23] MEDS ORDERED: Catapres-Tts 11 EACH TOP (13:46)
[2018-10-23] MEDS ORDERED: GUAI600T33 PO (13:49)
[2018-10-23] MEDS ORDERED: SACC250C PO (14:03)
[2018-10-23 14:19] LABS: Stool Occult Bld Immuno 1 Positive (NEGATIVE)
--- NOTE | 2018-10-23 15:29 | NUR ---
DISCHARGE NOTE PT STABLE FOR DISCHARGE TO HOME. MEDIPORT DEACCESSED PER PROTOCOL. IV REMOVED. DISCHARGE INSTRUCTIONS AND DISCHARGE MEDICATIONS REVIEWED WITH PT AND . PT AND VERBALIZE UNDERSTANDING AND DENY QUESTIONS. PT DISCHARGED VIA WHEELCHAIR TO WAITING CAR WITH BELONGINGS.
== END 2018-10-23 15:20 | disposition home or self-care (01) | DRG 871 ==
LOC: ER 10:12 → PCU 16:41 → ICUW 10-17 18:00 → PCU 10-20 15:55
PROVIDERS: Emergency Medicine; Family Medicine; Internal Medicine; Pharmacist; ADMIT Hospitalist
DX: A41.51 Sepsis due to Escherichia coli [E. coli] (principal); J96.01 Acute respiratory failure with hypoxia; J69.0 Pneumonitis due to inhalation of food and vomit; E87.1 Hypo-osmolality and hyponatremia; C77.9 Secondary and unspecified malignant neoplasm of lymph node, unspecified; E87.2 Acidosis; F10.239 Alcohol dependence with withdrawal, unspecified; N17.9 Acute kidney failure, unspecified; E44.0 Moderate protein-calorie malnutrition; F11.23 Opioid dependence with withdrawal; C32.9 Malignant neoplasm of larynx, unspecified; Z92.3 Personal history of irradiation; Z92.21 Personal history of antineoplastic chemotherapy; Z87.891 Personal history of nicotine dependence; E03.9 Hypothyroidism, unspecified; G47.33 Obstructive sleep apnea (adult) (pediatric); K21.9 Gastro-esophageal reflux disease without esophagitis; G89.4 Chronic pain syndrome; M19.90 Unspecified osteoarthritis, unspecified site; G47.00 Insomnia, unspecified; Z79.82 Long term (current) use of aspirin; D69.6 Thrombocytopenia, unspecified; Z90.02 Acquired absence of larynx; Z93.0 Tracheostomy status; Z79.891 Long term (current) use of opiate analgesic; Z66 Do not resuscitate
CPT/HCPCS: 31720; 36415; 71045; 71046; 76770; 80048; 80053; 80069; 80202; 82274; 82533; 82607; 82947; 83605; 83615; 83735; 83880; 83930; 83935; 84100; 84300; 84478; 84550; 85014; 85018; 85025; 86850; 86900; 86901; 86923; 87040; 87070; 87077; 87186; 87205; 93005; 93010; 93971; 94640; 94762; 96365; 97116; 97162; 97530; 99285-25; J0360; J0456; J0696; J1642; J1940; J1956; J2060; J2270; J2543; J2920; J3370; J3475; J7030; J7042; J7050; J7060; P9016

== ENCOUNTER 2018-10-25 09:41 | Inpatient (IN) | payer MEDICARE, OTHER ==
[~2018-10-25] VITALS: Ht 180.3 cm; Wt 84.0 kg
[~2018-10-25 09:41] MED LIST changes: +**INCOMPLETE MED REC; +ACID REDUCER 1150 MG PO; +Aspirin EC81 MG PO; +Catapres-Tts 11 EACH TOP; +FURO20 PO; +GUAI600T33 PO; +MORPHINE SULFA100 MG PO; +NEBI5 PO; +OXYC30 PO; +Omeprazole20 M1 PO; +POTCHL20ER PO; +SACC250C PO
[2018-10-25 10:26] LABS: BASOPHILS ABSOLUTE AUTO 0.02 K/mm3 (0.00-0.23); BASOPHILS PERCENT AUTO 0 % (0-2); EOSINOPHILS ABSOLUTE AUTO 0.02 K/mm3 (0.00-0.68); EOSINOPHILS PERCENT AUTO 0 % (0-6); Hematocrit 30.9 % (37.0-53.0); Hemoglobin 9.8 g/dL (13.5-17.5); IMMATURE GRAN ABSOLUTE AUTO 0.19 K/mm3 (0.00-0.10); IMMATURE GRAN PERCENT AUTO 2 % (0-1); LYMPHOCYTES ABSOLUTE AUTO 0.51 K/mm3 (0.84-5.20); LYMPHOCYTES PERCENT AUTO 6 % (21-46); MONOCYTES ABSOLUTE AUTO 0.44 K/mm3 (0.16-1.47); MONOCYTES PERCENT AUTO 5 % (4-13); Mean Corpuscular HGB 32.1 pg (26.0-34.0); Mean Corpuscular HGB Conc 31.7 g/dL (31.5-36.5); Mean Corpuscular Volume 101 fL (80-100); Mean Platelet Volume 9.4 fL (9.1-12.4); NEUTROPHILS ABSOLUTE AUTO 7.92 K/mm3 (1.96-9.15); NEUTROPHILS PERCENT AUTO 87 % (41-73); Platelet Count 134 K/mm3 (150-400); RDW Coefficient Variation 14.5 % (11.7-14.2); Red Blood Cell Count 3.05 M/mm3 (4.30-5.90)
[2018-10-25 10:39] LABS: Alanine Aminotransfer (ALT/SGP 37 U/L (12-78); Albumin, Blood 2.2 g/dL (3.4-5.0); Albumin/Globulin Ratio 0.6 (0.8-1.8); Alk Phos 156 U/L (50-136); Anion Gap 7 mmol/L (6-16); Aspartate Aminotrans (AST/SGOT 20 U/L (12-37); Bilirubin, Total 0.8 mg/dL (0.1-1.0); Blood Urea Nitrogen 18 mg/dL (8-24); Bun/Creatinine Ratio 14.1 (12.0-20.0); CO2, Blood 30 mmol/L (21-32); Calcium, Blood 8.5 mg/dL (8.5-10.1); Chloride, Blood 103 mmol/L (98-108); Creatinine, Blood 1.28 mg/dL (0.60-1.20); Glomerular Filtration Rate >60 (60-); Glucose, Blood 88 mg/dL (70-99); Potassium, Blood 3.8 mmol/L (3.5-5.5); Sodium, Blood 140 mmol/L (136-145); Total Protein, Blood 6.2 g/dL (6.4-8.2)
[2018-10-25] MEDS ORDERED: POTCHL20ER PO (11:30)
[2018-10-25] MEDS ORDERED: METO10 PO (11:31)
[2018-10-25] MEDS ORDERED: Norco 10-325 T1 EACH PO (11:33)
--- NOTE | 2018-10-25 12:02 | NUR ---
Initial Visit: Consult in the ER. Pt is known to Palliative Care. This expert medical writer has seen him on his last admission. He was in ICU at the time. At that time, the appeared to understand that he is declining. However, now, is visibly upset, seems afraid. Reviewed with them why they have come back to the ER. is explaining that since he came home from the hospital, he has been unable to walk, to control bladder and bowels, and eating less and less. Instructed that he may have come to the end of his life and the symptoms he is having may be related to end of life symptoms. At this, the becomes very defensive and states, "this has nothing to do with his cancer." and then, "I think Dr. Thorpe would tell us if he is at end of life, but he hasn't. In fact, Dr. Thorpe thinks he is getting better." Inquired what she would like to accomplish today, she states, "I think he was discharged too soon." She tried standing him up with a walker to go to the restroom and he started shaking and fell back into the chair, unable to get enough strength to stand completely. Pt is alert, oriented. 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 He has trach. He brings up thick, brown sputum through his stoma and shows me. Moderate amount on a tissue. He is able to make needs known. Reports 8/10 pain. Requests 30mg oxycodone for breakthrough pain, states that this is his regular dose. He has taken long acting pain medication this morning at 0630, but hasn't had anything else. Followed up with Dr. Paige. Reported conversation, pain level, pt's request for pain medication with dose. Will follow with patient for symptom management. As far as end of life discussions, it is clear that this family will need extensive counseling with physicians to come to this conclusion. Recommend having consult with Dr. Thorpe this admission as well. It appears that pt has not gone on hospice because of the ongoing discussions in which Dr. Thorpe has told them that he can resume chemo treatments as soon as he is well. From notes, it seems that pt hasn't been able to have treatments since June, and it does not appear that Dr. Thorpe has discussed possibility that pt will not be healthy enough to resume treatment. This may be helpful going forward and developing plan for patient and family as they give great thought to his instructions.
[2018-10-25] MEDS ORDERED: PRED20 PO (15:33)
[2018-10-25] MEDS ORDERED: SACC250C PO (15:34)
[2018-10-25] MEDS ORDERED: Catapres-Tts 11 EACH TOP (15:46)
[2018-10-25 17:09] LABS: Vancomycin, Random 9.2 ug/mL
--- NOTE | 2018-10-25 18:33 | NUR ---
SHIFT SUMMARY/TRANSFER-HANDOFF NOTE RECEIVED HANDOFF FROM ED NURSE NISHA. PT STATES HE IS A LIMITED FULL CODE (EVERYTHING EXCEPT INTUBATION). PT WAS RECENTLY RELEASED FROM HOSPITAL 3 DAYS AGO AND S/SX WORSENED AT HOME. IMAGING SHOWS PNEUMONIA HAS WORSENED. PT HAS A TRACH/STOMA THROUGH WHICH HE GETS O2 (4 LPM HERE, NORMALLY 2 LPM AT HOME). HE CAN EAT SOFT FOODS AND TAKE ORAL PILLS. HE IS NONVERBAL BUT A&O X4. HE HAS AN ACCESSED MEDIPORT ON THE RT UPPER CHEST WALL. HX: THROAT CANCER W/METASTASIS. HIS SAYS HE IS NORMALLY CONTINENT, BUT HERE IS INCONTINENT OF BOWEL AND BLADDER. HE CAN WALK AT HOME A BIT, BUT MOSTLY USES A MOTORIZED CHAIR. HE IS NOT WALKING YET HERE DUE TO EXTREME WEAKNESS AND SOB. PT SUCTIONS HIS OWN STOMA PRN.
[2018-10-26 00:20] LABS: Adenovirus Not Detected (NOT DETECT); Bordetella pertussis Not Detected (NOT DETECT); Chlamydophila pneumoniae Not Detected (NOT DETECT); Coronavirus 229E Not Detected (NOT DETECT); Coronavirus HKU1 Not Detected (NOT DETECT); Coronavirus NL63 Not Detected (NOT DETECT); Coronavirus OC43 Not Detected (NOT DETECT); Human Metapneumovirus Not Detected (NOT DETECT); Human Rhinovirus/Enterovirus Detected (NOT DETECT); Influenza A Not Detected (NOT DETECT); Influenza A/2009-H1 Not Detected (NOT DETECT); Influenza A/H1 Not Detected (NOT DETECT); Influenza A/H3 Not Detected (NOT DETECT); Influenza B Not Detected (NOT DETECT); Mycoplasma pneumoniae Not Detected (NOT DETECT); Parainfluenza Virus 1 Not Detected (NOT DETECT); Parainfluenza Virus 2 Not Detected (NOT DETECT); Parainfluenza Virus 3 Not Detected (NOT DETECT); Parainfluenza Virus 4 Not Detected (NOT DETECT); Respiratory Syncytial Virus Not Detected (NOT DETECT)
--- NOTE | 2018-10-26 07:26 | NUR ---
breathing via trac, call light in reach, port accessed, walking rounds completed with day staff, able to take oral meds
[2018-10-26 07:59] LABS: BASOPHILS ABSOLUTE AUTO 0.01 K/mm3 (0.00-0.23); BASOPHILS PERCENT AUTO 0 % (0-2); EOSINOPHILS ABSOLUTE AUTO 0.04 K/mm3 (0.00-0.68); EOSINOPHILS PERCENT AUTO 1 % (0-6); Hematocrit 26.4 % (37.0-53.0); Hemoglobin 8.3 g/dL (13.5-17.5); IMMATURE GRAN ABSOLUTE AUTO 0.19 K/mm3 (0.00-0.10); IMMATURE GRAN PERCENT AUTO 3 % (0-1); LYMPHOCYTES ABSOLUTE AUTO 0.86 K/mm3 (0.84-5.20); LYMPHOCYTES PERCENT AUTO 14 % (21-46); MONOCYTES ABSOLUTE AUTO 0.33 K/mm3 (0.16-1.47); MONOCYTES PERCENT AUTO 5 % (4-13); Mean Corpuscular HGB 32.7 pg (26.0-34.0); Mean Corpuscular HGB Conc 31.4 g/dL (31.5-36.5); Mean Platelet Volume 8.9 fL (9.1-12.4); NEUTROPHILS ABSOLUTE AUTO 4.91 K/mm3 (1.96-9.15); NEUTROPHILS PERCENT AUTO 77 % (41-73); Platelet Count 111 K/mm3 (150-400); RDW Coefficient Variation 14.6 % (11.7-14.2); RDW Standard Deviation 55.1 fL (35.1-46.3); Red Blood Cell Count 2.54 M/mm3 (4.30-5.90); White Blood Cell Count 6.34 K/mm3 (4.00-11.30)
[2018-10-26 08:04] LABS: Mean Corpuscular Volume 104 fL (80-100)
[2018-10-26 08:17] LABS: Alanine Aminotransfer (ALT/SGP 25 U/L (12-78); Albumin, Blood 1.9 g/dL (3.4-5.0); Albumin/Globulin Ratio 0.5 (0.8-1.8); Alk Phos 134 U/L (50-136); Anion Gap 6 mmol/L (6-16); Aspartate Aminotrans (AST/SGOT 17 U/L (12-37); Bilirubin, Total 0.6 mg/dL (0.1-1.0); Blood Urea Nitrogen 15 mg/dL (8-24); Bun/Creatinine Ratio 12.1 (12.0-20.0); CO2, Blood 30 mmol/L (21-32); Chloride, Blood 105 mmol/L (98-108); Creatinine, Blood 1.24 mg/dL (0.60-1.20); Globulin, Blood 3.6 g/dL (2.2-4.0); Glomerular Filtration Rate >60 (60-); Glucose, Blood 81 mg/dL (70-99); Potassium, Blood 3.7 mmol/L (3.5-5.5); Sodium, Blood 141 mmol/L (136-145); Total Protein, Blood 5.5 g/dL (6.4-8.2)
[2018-10-26 08:51] LABS: Source, Urine Catheter
[2018-10-26 08:59] LABS: Bilirubin, Urine Neg (Neg); Blood, Urine 1+ (Neg); Glucose Qualitative, Urine Neg (Neg); Ketones, Urine Neg (Neg); Leukocyte Esterase, Urine 1+ (Neg); Nitrite, Urine Neg (Neg); Protein, Urine 2+ (Neg); Urobilinogen, Urine NORM (Normal); pH, Urine 6.5 (5.0-8.0)
[2018-10-26 09:21] LABS: Appearance, Urine Clear (Clear); Color, Urine Yellow (P-Yellow)
[2018-10-26 09:24] LABS: Hyaline Casts 0-2 /lpf (0-2); Red Blood Cells, Urine 0-2 /hpf (0-2)
[2018-10-26 09:25] LABS: Bacteria Few /hpf; Squamous Epithelial Cells Few /hpf (Few)
--- NOTE | 2018-10-26 16:26 | NUR ---
SHIFT SUMMARY PT ADMITTED FOR WEAKNESS SECONDARY TO ENTEROVIRUS. PT HAS AN ACCESSED MEDIPORT, OK FOR DRAWS. HE IS ACHS. HE IS ON TELEMETRY AT 88 BPM NSR. HE HAS A TRACH FOR O2 ADMIN THROUGH A TRACH COLLAR PRN. HE CAN SWALLOW PILLS HE CAN EAT SOFTER FOODS. HE IS A LIMITED CODE, DOES NOT DESIRE TO BE INTUBATED. HE IS STILL IN DROPLET/CONTACT PRECAUTIONS I FAILED TO GET THE ORDERED STOOL SAMPLE TODAY. I DID GET THE UA AND THE SPUTUM SAMPLES THAT WERE ORDERED. HE REQUESTED TO SIT UP IN A CHAIR IN THE AFTERNOON TODAY, WITH PHYSICAL THERAPY'S HELP WE GOT HIM UP. HE ONLY SAT UP FOR 30 MINUTES, APPROX.
[2018-10-27 05:10] LABS: BASOPHILS ABSOLUTE AUTO 0.01 K/mm3 (0.00-0.23); BASOPHILS PERCENT AUTO 0 % (0-2); EOSINOPHILS ABSOLUTE AUTO 0.02 K/mm3 (0.00-0.68); EOSINOPHILS PERCENT AUTO 0 % (0-6); Hematocrit 26.9 % (37.0-53.0); Hemoglobin 8.6 g/dL (13.5-17.5); IMMATURE GRAN ABSOLUTE AUTO 0.09 K/mm3 (0.00-0.10); IMMATURE GRAN PERCENT AUTO 2 % (0-1); LYMPHOCYTES ABSOLUTE AUTO 0.47 K/mm3 (0.84-5.20); LYMPHOCYTES PERCENT AUTO 8 % (21-46); MONOCYTES ABSOLUTE AUTO 0.29 K/mm3 (0.16-1.47); MONOCYTES PERCENT AUTO 5 % (4-13); Mean Corpuscular HGB 32.2 pg (26.0-34.0); Mean Platelet Volume 8.9 fL (9.1-12.4); NEUTROPHILS ABSOLUTE AUTO 4.75 K/mm3 (1.96-9.15); NEUTROPHILS PERCENT AUTO 84 % (41-73); Platelet Count 125 K/mm3 (150-400); RDW Coefficient Variation 14.5 % (11.7-14.2); RDW Standard Deviation 53.6 fL (35.1-46.3); Red Blood Cell Count 2.67 M/mm3 (4.30-5.90); White Blood Cell Count 5.63 K/mm3 (4.00-11.30)
[2018-10-27 05:12] LABS: Mean Corpuscular Volume 101 fL (80-100)
[2018-10-27 05:37] LABS: Anion Gap 9 mmol/L (6-16); Blood Urea Nitrogen 13 mg/dL (8-24); Bun/Creatinine Ratio 10.1 (12.0-20.0); CO2, Blood 26 mmol/L (21-32); Chloride, Blood 105 mmol/L (98-108); Creatinine, Blood 1.29 mg/dL (0.60-1.20); Glomerular Filtration Rate >60 (60-); Glucose, Blood 91 mg/dL (70-99); Potassium, Blood 3.6 mmol/L (3.5-5.5); Sodium, Blood 140 mmol/L (136-145)
--- NOTE | 2018-10-27 07:27 | NUR ---
trak, percautions due to not being cleared, call light in reach, takes meds whole with water, saline locked, returning day staff took report
--- NOTE | 2018-10-27 16:03 | NUR ---
SHIFT SUMMARY PT STATING HIS BACK PAIN IS WORSE TODAY. I DID ASK HIM IF HE WOULD GET UP IN THE CHAIR, HE DID REFUSE. THIS PT HAS REFUSED CARE AND PHYSICAL THERAPY ON PREVIOUS OCCASIONS. HE ACCIDENTALLY PULLED OUT HIS MEDIPORT ACCESS TODAY. MY CHARGE NURSE AB AND I REACCESSED IT. IT FLUSHED EASILY FOLLOWING THE PROCEDURE AND SO IV FLUIDS WERE RESUMED. HIS TELEMETRY WAS DC'D TODAY. HE HAS BEEN NSR WITH NO ADVERSE EVENTS DURING PREVIOUS SHIFTS. HE IS A&O X4, DIAGNOSED W/WEAKNESS SECONDARY TO ENTEROVIRUS. HE IS ACHS. TAKES MEDS WHOLE ORALLY, AND HE CAN EAT. HE DOES HAVE A TRACH STOMA FOR O2 ADMIN - PRN. HE SUCTIONS HIMSELF - PRN. MUCUS IS DARK BROWN AND THICK. HE IS NON-VERBAL, BUT CAN WRITE. HE IS A LIMITED CODE, HE DOES NOT WANT TO BE INTUBATED.
--- NOTE | 2018-10-27 18:24 | NUR ---
PT STATUS I PERFORMED A BRIEF CHANGE ON THE PT BY MYSELF TODAY, I NOTED REDNESS AND IRRITATION IN THE PERINEAL AREA AND EXCORIATED SKIN ABOVE THE ANUS. APPLIED BARRIER CREAM. IT IS IMPORTANT THAT NURSING STAFF BE MADE AWARE (TAKE PREVENTATIVE MEASURES) SO THAT FURTHER SKIN IRRITATION AND/OR BREAKDOWN IS AVOIDED. PT IS ABLE TO SHIFT HIS WEIGHT IN BED, PLEASE ENCOURAGE HIM TO DO SO FREQUENTLY.
--- NOTE | 2018-10-28 07:24 | NUR ---
a+o, trake, call light in reach, infusing into port, caps changed due to a blood draw, walking rounds completed with day shift, medicated for pain
[2018-10-28 09:35] LABS: BASOPHILS ABSOLUTE AUTO 0.01 K/mm3 (0.00-0.23); BASOPHILS PERCENT AUTO 0 % (0-2); EOSINOPHILS ABSOLUTE AUTO 0.06 K/mm3 (0.00-0.68); EOSINOPHILS PERCENT AUTO 1 % (0-6); Hematocrit 26.2 % (37.0-53.0); Hemoglobin 8.2 g/dL (13.5-17.5); IMMATURE GRAN ABSOLUTE AUTO 0.04 K/mm3 (0.00-0.10); IMMATURE GRAN PERCENT AUTO 1 % (0-1); LYMPHOCYTES ABSOLUTE AUTO 0.45 K/mm3 (0.84-5.20); LYMPHOCYTES PERCENT AUTO 10 % (21-46); MONOCYTES ABSOLUTE AUTO 0.38 K/mm3 (0.16-1.47); MONOCYTES PERCENT AUTO 8 % (4-13); Mean Corpuscular HGB 31.5 pg (26.0-34.0); Mean Corpuscular HGB Conc 31.3 g/dL (31.5-36.5); Mean Corpuscular Volume 101 fL (80-100); Mean Platelet Volume 9.1 fL (9.1-12.4); NEUTROPHILS PERCENT AUTO 79 % (41-73); Platelet Count 113 K/mm3 (150-400); RDW Coefficient Variation 14.5 % (11.7-14.2); RDW Standard Deviation 53.2 fL (35.1-46.3); RETICULOCYTE ABSOLUTE 0.0614 M/mm3 (0.0200-0.1100); RETICULOCYTE COUNT PERCENT 2.36 % (0.50-2.50); White Blood Cell Count 4.54 K/mm3 (4.00-11.30)
[2018-10-28 09:58] LABS: Vancomycin, Random 13.9 ug/mL
[2018-10-28 09:59] LABS: Alanine Aminotransfer (ALT/SGP 18 U/L (12-78); Albumin/Globulin Ratio 0.6 (0.8-1.8); Alk Phos 131 U/L (50-136); Anion Gap 8 mmol/L (6-16); Aspartate Aminotrans (AST/SGOT 17 U/L (12-37); Bilirubin, Total 0.6 mg/dL (0.1-1.0); Blood Urea Nitrogen 11 mg/dL (8-24); Bun/Creatinine Ratio 9.5 (12.0-20.0); CO2, Blood 25 mmol/L (21-32); Calcium, Blood 7.8 mg/dL (8.5-10.1); Chloride, Blood 107 mmol/L (98-108); Creatinine, Blood 1.16 mg/dL (0.60-1.20); Globulin, Blood 3.6 g/dL (2.2-4.0); Glomerular Filtration Rate >60 (60-); Glucose, Blood 116 mg/dL (70-99); Potassium, Blood 3.6 mmol/L (3.5-5.5); Sodium, Blood 140 mmol/L (136-145); Total Protein, Blood 5.6 g/dL (6.4-8.2)
--- NOTE | 2018-10-28 17:55 | NUR ---
SHIFT SUMMARY NO ACUTE CHANGES. PATIENT WORKED WITH OT IN THE MORING BUT REFUSED PHYSICAL THERAPY IN THE AFTERNOON. PATIENT BECOMES WITHDRAWN AND REFUSES EYE CONTACT WHEN HE DOES NOT WANT TO PARTICIATE IN CARE. PATIENT IS ABLE TO USE A NOTEPAD TO COMMUNICATE WHEN HE DESIRES TO. MEDICATED FOR PAIN X3 THIS SHIFT. DENIES NAUSEA OR SHORTNESS OF BREATH. CALL LIGHT IN REACH, WILL CONTINUE TO MONITOR.
[2018-10-29 05:53] LABS: Vancomycin, Random 19.1 ug/mL
--- NOTE | 2018-10-29 07:46 | NUR ---
a+o, changed wand for suction and cleaned but still clotting, call light in reach, walking rounds provided to returning nurse, arya altamirano
--- NOTE | 2018-10-29 13:32 | NUR ---
Pt visit this afternoon. Pt reports 8/10 pain. His is present during visit. Engaged in therapeutic conversation regarding Pt's current acute illness. Discussed goals of care and Pt reports that he wants to get better but wants time to weigh the pros and cons of having procedure. Pt's reports that his intake of food has been poor over the last couple of days and suggests starting IV nutrition. reports that last time he recieved IV nutrition his appetite improved and he started eating again. No other concerns reported at this time. Plan is to relay request to hospitalist and allow Pt time to discuss treatment options with the rest of his family this evening. Spoke with Pt's nurse Kera and she is agreeable with plan. Kera reports that she will offer breakthrough pain medication.
--- NOTE | 2018-10-29 18:29 | NUR ---
SHIFT SUMMARY NO ACUTE CHANGES. DR. MCKEON AND DR. PRESCOTT CONSULTED TODAY. PATIENT WAS POSSIBLE TRANSFER TO [facility] FOR LUNG SURGERY RELATED TO NECROTIZING PNA BUT WILL REMAIN AT [facility] FOR NOW TO CONTINUE ANTIBIOTIC THERAPY AND CONSIDER OPTIONS INCLUDING PALLIATIVE CARE. VISTED SEVERAL TIMES TODAY. JHOANN WORKED WITH PT AND OT. MEDICATED X3 FOR PAIN. DENIES NAUSEA AND SHORTNESS OF BREATH. CALL LIGHT IN REACH, WILL CONTINUE TO MONITOR.
[2018-10-30 05:56] LABS: Vancomycin, Random 19.7 ug/mL
--- NOTE | 2018-10-30 07:25 | NUR ---
call light in reach, able to make needs known, pain controlled with medication, infusing into mediport, room air/trake, clinimix running, walking rounds completed with day staff
[2018-10-30 10:37] LABS: BASOPHILS ABSOLUTE AUTO 0.02 K/mm3 (0.00-0.23); BASOPHILS PERCENT AUTO 0 % (0-2); EOSINOPHILS ABSOLUTE AUTO 0.06 K/mm3 (0.00-0.68); EOSINOPHILS PERCENT AUTO 1 % (0-6); Hematocrit 28.5 % (37.0-53.0); Hemoglobin 8.8 g/dL (13.5-17.5); IMMATURE GRAN ABSOLUTE AUTO 0.14 K/mm3 (0.00-0.10); IMMATURE GRAN PERCENT AUTO 2 % (0-1); LYMPHOCYTES ABSOLUTE AUTO 0.87 K/mm3 (0.84-5.20); LYMPHOCYTES PERCENT AUTO 15 % (21-46); MONOCYTES ABSOLUTE AUTO 0.77 K/mm3 (0.16-1.47); MONOCYTES PERCENT AUTO 13 % (4-13); Mean Corpuscular HGB 31.3 pg (26.0-34.0); Mean Corpuscular HGB Conc 30.9 g/dL (31.5-36.5); Mean Corpuscular Volume 101 fL (80-100); Mean Platelet Volume 9.3 fL (9.1-12.4); NEUTROPHILS ABSOLUTE AUTO 4.11 K/mm3 (1.96-9.15); NEUTROPHILS PERCENT AUTO 69 % (41-73); NRBC ABSOLUTE 0.02 K/mm3 (0.00-0.02); NRBC Auto 0.3 /100 WBC (0.0-0.2); Platelet Count 139 K/mm3 (150-400); RDW Coefficient Variation 14.6 % (11.7-14.2); RDW Standard Deviation 52.9 fL (35.1-46.3); Red Blood Cell Count 2.81 M/mm3 (4.30-5.90); White Blood Cell Count 5.97 K/mm3 (4.00-11.30)
[2018-10-30 10:54] LABS: Alanine Aminotransfer (ALT/SGP 16 U/L (12-78); Albumin, Blood 2.1 g/dL (3.4-5.0); Albumin/Globulin Ratio 0.5 (0.8-1.8); Alk Phos 153 U/L (50-136); Anion Gap 9 mmol/L (6-16); Aspartate Aminotrans (AST/SGOT 13 U/L (12-37); Bilirubin, Total 0.5 mg/dL (0.1-1.0); Blood Urea Nitrogen 12 mg/dL (8-24); Bun/Creatinine Ratio 10.8 (12.0-20.0); CO2, Blood 23 mmol/L (21-32); Calcium, Blood 8.2 mg/dL (8.5-10.1); Chloride, Blood 105 mmol/L (98-108); Creatinine, Blood 1.11 mg/dL (0.60-1.20); Globulin, Blood 3.9 g/dL (2.2-4.0); Glomerular Filtration Rate >60 (60-); Glucose, Blood 133 mg/dL (70-99); Sodium, Blood 137 mmol/L (136-145)
[2018-10-30 17:41] LABS: International Normalized Ratio 1.63; Prothrombin Time Results 16.5 Sec (9.7-11.5)
--- NOTE | 2018-10-30 19:08 | NUR ---
SHIFT SUMMARY PT AXO TO SELF, FOLLOWING DIRCTIONS AND FAMILY. THOUGH PT NOT ABLE TO SPEAK DUE TO TRACH. PT DEPRESSED DUE TO NEW INFORMATION FROM PHYSICIAN ABOUT HIS HEALTH. PT REFUSED SHOWER, REFUSED TO AMBULATE, ETC. PT WROTE "IM DYING" THE REASON THAT HE REFUSES. PT'S PAIN UNCHANGED (03/29) THROUGHOUT THE DAY DESPITE MEDICATION PER EMAR. PT VOMITED MOST MORNING MEDS THIS AM. BED IN LOW POSITION, CALL LIGHT WITHIN REACH. PT SUCTIONING OWN TRACH PRN INDEPENDENTLY. BROWN/ PINK MUCUS COMING OUT VIA SUCTION.
[2018-10-31 06:13] LABS: Vancomycin, Random 20.5 ug/mL
--- NOTE | 2018-10-31 07:16 | NUR ---
depressed, able to make needs known, saadk, call light in reach, [facility] accessed clinimix and ns runing walking rounds completed with day staff
--- NOTE | 2018-10-31 15:08 | NUR ---
Pt visit this afternoon. Spoke with both Pt's nurse Esme and Pt Karla and they report conerns that Pt may be experiencing depression. He is refusing care at times and not interacting much. Pt is resting in bed upon arrival. He appears comfortable and when asked about pain he does not respond. Attempted to engage in therapeutic conversation about his well being including possibility of feeling depressed and Pt does not engage. Asked if Pt would like to start an antidepressant regimen and Pt shakes his head from side to side indicating no. During conversation Pt continually closes his eyes. Asked Pt if he would like sometime to himself and Pt shakes his head back and forth indicating yes. Instructed Pt palliative care will remain available for visits. Will remain available
--- NOTE | 2018-10-31 18:30 | NUR ---
SHIFT SUMMARY PT COMPLAINED OF PAIN AND WAS GIVEN OXY WHICH WORKED WELL. DENIED MOST OF CARE (TURNS, BATHING, ETC). HE ALSO REFUSED ALL MEALS AND DID NOT EAT ANYTHING DESPITE ENCOURAGEMENT. CLINIMIX RUNNING. MEDIPORT FLUSHING AND DRAWING WELL, HEPARIN FLUSHED AND CAP CHANGED. TRACH STOMA DOESN'T HAVE ANY APPLIANCE, SO PT UNABLE TO VOCALIZE. COUGHING UP REDISH/WHITE THICK SECRETIONS AND USING YANKAUR HIMSELF TO SUCTION. RT SEEING PT. SPUTUM SAMPLE SENT OFF. ERICA AND TARIQ CAME TO SEE PT. SORE FOUND ON BOTTOM WHEN HE EVENTUALLY CONSENTED TO GETTING OOB. SORE PRESENT ON R BUTTOCK. PICTURES TAKEN, WOUND CLEANSED, AND CALAZIME CREAM APPLIED. RED GROINT. WCTM PT SEEMS ALERT AND ORIENTED. PILLS WHOLE WITH WATER
--- NOTE | 2018-11-01 04:23 | NUR ---
SHIFT SUMMARY PATIENT HAD NO ACUTE CHANGES OBSERVED THIS SHIFT. AXO X3 AND NPO AFTER MIDNIGHT FOR BRONCHOSCOPY THIS A.M. CLINIMIX INFUSING AT 75mL/HR. MS CONTIN AND OXYCODONE GIVEN FOR NECK PAIN PER EMAR. MEDIPORT. TRACH STOMA W/O APPLIANCE. NO VERBAL USING PEN AND PAD WITH HAND SIGNAL TO COMMUNICATE. TAKES MEDICATION WHOLE WITH WATER. VSS/AFEBRILE. DROPLET PRECAUTIONS. CALL LIGHT IN REACH. BED IN LOWEST POSITION. WILL CONTINUE TO MONITOR UNTIL DAY SHIFT NURSE ASSUME CARE.
[2018-11-01 06:18] LABS: BASOPHILS ABSOLUTE AUTO 0.02 K/mm3 (0.00-0.23); BASOPHILS PERCENT AUTO 0 % (0-2); EOSINOPHILS ABSOLUTE AUTO 0.12 K/mm3 (0.00-0.68); EOSINOPHILS PERCENT AUTO 2 % (0-6); Hematocrit 25.9 % (37.0-53.0); Hemoglobin 8.3 g/dL (13.5-17.5); IMMATURE GRAN ABSOLUTE AUTO 0.23 K/mm3 (0.00-0.10); IMMATURE GRAN PERCENT AUTO 4 % (0-1); LYMPHOCYTES ABSOLUTE AUTO 1.23 K/mm3 (0.84-5.20); LYMPHOCYTES PERCENT AUTO 21 % (21-46); MONOCYTES ABSOLUTE AUTO 0.82 K/mm3 (0.16-1.47); MONOCYTES PERCENT AUTO 14 % (4-13); Mean Corpuscular HGB 32.9 pg (26.0-34.0); Mean Corpuscular Volume 103 fL (80-100); Mean Platelet Volume 9.7 fL (9.1-12.4); NEUTROPHILS ABSOLUTE AUTO 3.53 K/mm3 (1.96-9.15); NEUTROPHILS PERCENT AUTO 59 % (41-73); Platelet Count 160 K/mm3 (150-400); RDW Coefficient Variation 15.1 % (11.7-14.2); RDW Standard Deviation 55.1 fL (35.1-46.3); Red Blood Cell Count 2.52 M/mm3 (4.30-5.90); White Blood Cell Count 5.95 K/mm3 (4.00-11.30)
[2018-11-01 06:37] LABS: International Normalized Ratio 1.58; Prothrombin Time Results 16.1 Sec (9.7-11.5)
--- NOTE | 2018-11-01 11:18 | NUR ---
11/01/18 1118 Cami Irvin History, Chart, Medications and Allergies reviewed before start of procedure. DR. PRESCOTT DISCUSSED AT LENGTH WITH PATEINT AND FAMILY SEDATION PLAN AND RISKS ASSOCIATED WITH SEDATING AND PREFORMING PROCEDURE DUE TO HEALTH RISKS AND ANATOMY OF THE PATEINTNTS AIRWAY. DR. PRESCOTT TOPICALLY NUMBED AND VISUALIZED AIRWAY, REPORTS ABLE TO INTIBATE STOMA WITH 7.5/8 TUBE IF NEEDED FOR AIRWAY PROTECTION PROIR TO ANY SEDATIVE MEDICATIONS GIVEN TO PATEINT. MONITOR INTACT WITH CONTINUOUS PULSE OXIMETRY AND INTERMITTENT BP.3-LEAD EKG REVIEWED WITH PHYSICIAN PRIOR TO START OF PROCEDURE.O2 VIA STOMA TENT 55% INTACT THROUGHOUT SEDATION/PROCEDURE.
--- NOTE | 2018-11-01 17:25 | NUR ---
SHIFT SUMMARY PT STARTED ON TPN. RUNNING AT 75ML/HR. PT CURRENTLY SLEEPING. MEDICATED FOR PAIN 3X THIS SHIFT. CLINAMIX DC'ED. PT UNDERWENT BRONCOSCOPY THIS AM. AFTERNOON BP OF 193/109 TREATED WITH PM COREG. OTHER VITALS STABLE. PT TOLERATING PO MEDICATIONS BUT REFUSING MEALS. FOAM REPLACED ON PT BOTTOM. PT & FAMILY EDUCATED ON THE IMPORTANCE OF REPOSITIONING. PT ALLOWED FOR REPOSITIONING 3X THIS SHIFT. NO OTHER CHANGES IN ASSESSMENT AT THIS TIME. WILL CONTINUE TO MONITOR UNTIL TURNOVER IS COMPLETE.
--- NOTE | 2018-11-01 20:35 | NUR ---
CALL LIGHT IN REACH, DOESNT WANT ORAL CARE NOR A BED BATH. URINAL EMPTIED - 300 ML.
--- NOTE | 2018-11-02 04:38 | NUR ---
SHIFT SUMMARY PT IS A 58 Y/O MALE, ADMITTED FOR WEAKNESS. HE IS A&O X 3, THOUGH NONVERBAL R/T A TRACHEOSTOMY PLACEMENT. THE PT REPORTED NECK AND SHOULDER PAIN, FOR WHICH HE WAS MEDICATED X2 WITH PRN MS CONTIN AND OXYCODONE. HE DENIED ANY NAUSEA OR SOB. THE PT SLEPT FOR A COUPLE OF HOURS IN THE AM. THE PT'S BP RAN HIGH DURING THE NIGHT IN THE 200S SYSTOLICALLY. THE HOSPITALIST AUGUSTUS MCCONNELL WAS CONSULTED, AND PRN HYDRALAZINE ORDERED FOR ANY SYSTOLIC BP > 180. HE WAS GIVEN ONE DOSE, AND HIS BP CAME DOWN TO 189 ON RECHECK, AND THEN TO 147 DURING AM VITALS. PT'S HR WAS ALSO ELEVATED IN THE 100S, BUT CAME DOWN TO THE 70S DURING AM VITALS. ALL OTHER VITALS STABLE. NO OTHER ACUTE CHANGES IN PT CONDITION NOTED. WILL CONTINUE TO MONITOR AND TREAT PER EMAR.
[2018-11-02 05:20] LABS: BASOPHILS ABSOLUTE AUTO 0.03 K/mm3 (0.00-0.23); BASOPHILS PERCENT AUTO 1 % (0-2); EOSINOPHILS PERCENT AUTO 2 % (0-6); Hematocrit 23.9 % (37.0-53.0); Hemoglobin 7.7 g/dL (13.5-17.5); IMMATURE GRAN ABSOLUTE AUTO 0.19 K/mm3 (0.00-0.10); IMMATURE GRAN PERCENT AUTO 4 % (0-1); LYMPHOCYTES ABSOLUTE AUTO 1.04 K/mm3 (0.84-5.20); LYMPHOCYTES PERCENT AUTO 20 % (21-46); MONOCYTES PERCENT AUTO 12 % (4-13); Mean Corpuscular HGB Conc 32.2 g/dL (31.5-36.5); Mean Platelet Volume 9.6 fL (9.1-12.4); NEUTROPHILS ABSOLUTE AUTO 3.22 K/mm3 (1.96-9.15); NEUTROPHILS PERCENT AUTO 62 % (41-73); NRBC ABSOLUTE 0.03 K/mm3 (0.00-0.02); NRBC Auto 0.6 /100 WBC (0.0-0.2); Platelet Count 168 K/mm3 (150-400); Red Blood Cell Count 2.41 M/mm3 (4.30-5.90); White Blood Cell Count 5.18 K/mm3 (4.00-11.30)
[2018-11-02 05:22] LABS: Mean Corpuscular Volume 99 fL (80-100)
[2018-11-02 05:45] LABS: Magnesium, Blood 1.3 mg/dL (1.6-2.4)
[2018-11-02 05:47] LABS: Albumin, Blood 1.7 g/dL (3.4-5.0); Anion Gap 7 mmol/L (6-16); Blood Urea Nitrogen 16 mg/dL (8-24); Bun/Creatinine Ratio 17.2 (12.0-20.0); CO2, Blood 26 mmol/L (21-32); Calcium, Blood 8.9 mg/dL (8.5-10.1); Chloride, Blood 101 mmol/L (98-108); Creatinine, Blood 0.93 mg/dL (0.60-1.20); Glomerular Filtration Rate >60 (60-); Glucose, Blood 129 mg/dL (70-99); Phosphorus, Blood 2.4 mg/dL (2.5-4.9); Potassium, Blood 4.9 mmol/L (3.5-5.5); Sodium, Blood 134 mmol/L (136-145); Triglycerides 227 mg/dL (30-160)
[2018-11-02 13:06] LABS: QUANTIFERON MITOGEN VALUE 8.37 IU/mL (.); QUANTIFERON NIL VALUE 0.05 IU/mL (.); QUANTIFERON TB1 AG VALUE 0.05 IU/mL (.); QUANTIFERON TB2 AG VALUE 0.05 IU/mL (.); QUANTIFERON-TB GOLD PLUS Negative (Negative)
--- NOTE | 2018-11-02 14:36 | NUR ---
SUMMARY PT IS A/O X3, HOWEVER NONVERBAL D/T HX LARYNGEAL CA, HE HAS OPEN TRACHE STOMA THAT HE SELF SUCTIONS PRN. HE HAS OCCASIONAL COUGH, MOSTLY NONPRODUCTIVE @ THIS TIME, LUNGS SOMEWHAT COARSE, BIOX >90% RA. HX CHR NECK/BACK PAIN, PRN MS CONTIN & OXYCODONE FOR RELEIF TODAY. HX ANEMIA, H&H 7.7/23.8, DR ARIZMENDI AWARE. POOR APPETITE, TPN CONTINUES @ 75 ML/HR VIA MEDIPORT. VSS. +BM TODAY, NO BLOOD NOTED.
--- NOTE | 2018-11-03 05:31 | NUR ---
SHIFT SUMMARY PT IS A 58 Y/O MALE, ADMITTED FOR WEAKNESS. HE HAS A TRACHEOSTOMY STOMA THAT IS CURRENTLY OPEN TO AIR, WITH BLOODY SPUTUM. HE IS A&O X 4, BUT NONVERBAL DUE TO THE TRACH. THE PT REPORTED CHRONIC PAIN, FOR WHICH HE WAS MEDICATE X 1 WITH PRN MS CONTIN X 1, AND OXYCODONE X 1. HE DENIED ANY ACUTE SOB OR NAUSEA. PT DID NOT SLEEP DURING THE NIGHT. PT'S BP WAS ELEVATED IN THE AM AT 193/124, AND WILL BE GIVEN PRN HYDRALAZINE. PT'S HR WAS ALSO ELEVATED IN THE 100-110S. ALL OTHER VITALS STABLE. NO OTHER ACUTE CHANGES IN PT CONDITION NOTED. WILL CONTINUE TO MONITOR AND TREAT PER EMAR.
[2018-11-03 06:40] LABS: BASOPHILS ABSOLUTE AUTO 0.03 K/mm3 (0.00-0.23); BASOPHILS PERCENT AUTO 0 % (0-2); EOSINOPHILS PERCENT AUTO 1 % (0-6); Hematocrit 27.8 % (37.0-53.0); Hemoglobin 9.1 g/dL (13.5-17.5); IMMATURE GRAN ABSOLUTE AUTO 0.36 K/mm3 (0.00-0.10); IMMATURE GRAN PERCENT AUTO 5 % (0-1); LYMPHOCYTES ABSOLUTE AUTO 0.94 K/mm3 (0.84-5.20); LYMPHOCYTES PERCENT AUTO 13 % (21-46); MONOCYTES ABSOLUTE AUTO 0.92 K/mm3 (0.16-1.47); MONOCYTES PERCENT AUTO 13 % (4-13); Mean Corpuscular HGB 31.7 pg (26.0-34.0); Mean Corpuscular HGB Conc 32.7 g/dL (31.5-36.5); Mean Corpuscular Volume 97 fL (80-100); Mean Platelet Volume 9.5 fL (9.1-12.4); NEUTROPHILS ABSOLUTE AUTO 4.78 K/mm3 (1.96-9.15); NEUTROPHILS PERCENT AUTO 67 % (41-73); NRBC ABSOLUTE 0.03 K/mm3 (0.00-0.02); NRBC Auto 0.4 /100 WBC (0.0-0.2); Platelet Count 203 K/mm3 (150-400); RDW Coefficient Variation 15.5 % (11.7-14.2); RDW Standard Deviation 52.4 fL (35.1-46.3); Red Blood Cell Count 2.87 M/mm3 (4.30-5.90); White Blood Cell Count 7.13 K/mm3 (4.00-11.30)
[2018-11-03 07:04] LABS: Albumin, Blood 2.1 g/dL (3.4-5.0); Anion Gap 8 mmol/L (6-16); Blood Urea Nitrogen 21 mg/dL (8-24); Bun/Creatinine Ratio 21.9 (12.0-20.0); CO2, Blood 27 mmol/L (21-32); Chloride, Blood 96 mmol/L (98-108); Creatinine, Blood 0.96 mg/dL (0.60-1.20); Glomerular Filtration Rate >60 (60-); Glucose, Blood 150 mg/dL (70-99); Magnesium, Blood 1.2 mg/dL (1.6-2.4); Phosphorus, Blood 2.6 mg/dL (2.5-4.9); Potassium, Blood 4.9 mmol/L (3.5-5.5); Sodium, Blood 131 mmol/L (136-145)
--- NOTE | 2018-11-03 16:43 | NUR ---
SUMMARY BP ELEVATED THIS AM, 198/120, PRN HYDRALAZINE GIVEN/ORDER, @ 1230 BP IMPROVED, 118/85, DR ARIZMENDI MONITORING & ADJUSTING MEDS NEEDED. PT STATE MAY BE R/T PAIN. PT ENCOURAGED TO CALL/REPORT PAIN. HX CHR NECK/BACK PAIN, HAVE GIVEN MS CONTIN, OXYCODONE & HYDROCODONE TODAY FOR PAIN RELEIF. HE IS NONVERBAL R/T HX LARYNGEAL CA/TRACHE STOMA. AFFECT IS FLAT/WITHDRAWN/DEPRESSED. APPETITE HAS BEEN POOR HOWEVER HIS WAS ABLE TO GET HIM TO EAT SOME SOUP/CRACKERS & MILK @ LUNCH. CORRECTIVE THERAPY AIDE IN TO DISCUSS FOOD CHOICES WITH PT/, ADJUST TPN INGREDIENTS R/T LOW NA+, RATE CONTINUES @ 75 ML/HR. DR ARIZMENDI ORDER MEGACE TO ATTEMPT TO INCREASE APPETITE. PT IS USUALLY CONTINENT OF URINE HOWEVER INCONT STOOL. SBD R BUTTOCKS, FOAM DRSG CDI, HE IS ON EGGCRATE MATTRESS. EQUAL OPPORTUNITY SPECIALIST REPORTS DECINES Q2 TURNS. COUGH CONTINUES, @ X'S GETS UP BROWNISH SPUTUM, SELF SX'S TRACHE.
--- NOTE | 2018-11-04 04:31 | NUR ---
SHIFT SUMMARY PT IS A 58 Y/O MALE, ADMITTED FOR WEAKNESS. HE HAS A TRACHEOSTOMY THAT IS CURRENTLY OPEN TO AIR, WITH THICK, BLOODY SPUTUM. THE PT HAS A HISTORY OF CHRONIC PAIN, BUT DENIED THE NEED FOR PAIN MEDS WHEN ASKED. HE ALSO DENIED ANY ACUTE SOB OR NAUSEA AND SLEPT OFF AND ON DURING THE NIGHT. PT'S BP WAS ELEVATED DURING AM VITALS AT 172/114, BUT WAS BELOW THE PARAMETERS FOR PRN HYDRALAZINE. HIS HEART RATE WAS ALSO ELEVATED DURING THE NIGHT IN THE 110S. ALL OTHER VITALS STABLE. THE PT'S BLOOD SUGARS HAVE BEEN STABLE BETWEEN 70 - 180 FOR OVER 48 HOURS WHILE ON CPN, HIS Q6H BLOOD SUGARS WERE HELD DURING THE NIGHT. NO OTHER ACUTE CHANGES IN PT CONDITION NOTED. WILL CONTINUE TO MONITOR AND TREAT PER EMAR.
[2018-11-04 05:24] LABS: Hematocrit 27.4 % (37.0-53.0); Hemoglobin 8.7 g/dL (13.5-17.5); Mean Corpuscular HGB 32.2 pg (26.0-34.0); Mean Corpuscular HGB Conc 31.8 g/dL (31.5-36.5); Mean Corpuscular Volume 102 fL (80-100); Mean Platelet Volume 9.9 fL (9.1-12.4); Platelet Count 218 K/mm3 (150-400); RDW Coefficient Variation 15.9 % (11.7-14.2); RDW Standard Deviation 58.1 fL (35.1-46.3)
[2018-11-04 05:56] LABS: Albumin, Blood 2.1 g/dL (3.4-5.0); Anion Gap 8 mmol/L (6-16); Blood Urea Nitrogen 28 mg/dL (8-24); Bun/Creatinine Ratio 25.9 (12.0-20.0); CO2, Blood 28 mmol/L (21-32); Calcium, Blood 10.1 mg/dL (8.5-10.1); Chloride, Blood 97 mmol/L (98-108); Creatinine, Blood 1.08 mg/dL (0.60-1.20); Glomerular Filtration Rate >60 (60-); Glucose, Blood 120 mg/dL (70-99); Magnesium, Blood 1.5 mg/dL (1.6-2.4); Phosphorus, Blood 3.8 mg/dL (2.5-4.9); Potassium, Blood 4.7 mmol/L (3.5-5.5); Sodium, Blood 133 mmol/L (136-145); Triglycerides 210 mg/dL (30-160)
[2018-11-04 06:01] LABS: BAND PERCENT MAN 2 % (0-8); BASOPHILS ABSOLUTE MAN 0.13 K/mm3 (0.00-0.23); BASOPHILS PERCENT MAN 2 % (0-2); EOSINOPHILS ABSOLUTE MAN 0.06 K/mm3 (0.00-0.68); EOSINOPHILS PERCENT MAN 1 % (0-6); LYMPHOCYTES ABSOLUTE MAN 1.05 K/mm3 (0.84-5.20); LYMPHOCYTES PERCENT MAN 16 % (21-46); METAMYELOCYTE ABSOLUTE MAN 0.13 K/mm3 (0.00-0.00); METAMYELOCYTE PERCENT MAN 2 % (0-0); MONOCYTES ABSOLUTE MAN 0.26 K/mm3 (0.16-1.47); MONOCYTES PERCENT MAN 4 % (4-13); MYELOCYTE ABSOLUTE MAN 0.06 K/mm3 (0.00-0.00); MYELOCYTE PERCENT MAN 1 % (0-0); NEUTROPHILS ABSOLUTE MAN 4.88 K/mm3 (1.96-9.15); SEG NEUTROPHILS PERCENT MAN 72 % (41-73); TOTAL CELLS COUNTED 100
--- NOTE | 2018-11-04 13:25 | NUR ---
PATIENT REFUSES MEDS FOR PAIN AT THIS TIME.
--- NOTE | 2018-11-04 15:46 | NUR ---
NOTIFED MEDIPORT NEEDLE CHANGED AND COULD NOT GET BLD RETURN UPON REACCESSING. ADVISED COULD NOT DRAW BLD PAST FEW TIMES ALSO. NO SWELLING AROUND SITE AND LOOKS LIKE INFUSING OK. STS CONTINUE TO INFUSE TPN.
--- NOTE | 2018-11-04 16:30 | NUR ---
PATIENT ALERT. USES URINAL. FACE SWOLLEN. DENIED /REFUSED PAIN MEDS MOST OF SHIFT. DODGE NEEDLE CHANGED. DOES NOT WANT TO GET UP. NEEDS COAXING TO GET UP. USES SUCTION NEEDED. HAS BEEN EATTING WHAT S.O. BRINGS IN. BED IN LOW POSITION. DOES NOT TALK DUE TO TRACH. WILL CONTINUE TO MONITOR.
--- NOTE | 2018-11-04 16:45 | NUR ---
SUCTION OUT THICK GREENISH, RED SPUTUM FROM TRACH.
[2018-11-04 19:58] LABS: Result SEE LABOUT RESULTS
--- NOTE | 2018-11-05 04:50 | NUR ---
PT IS HYPERTENSIVE BUT NOT HIGH ENOUGH TO TRIGGER THE PRN INTERVENTION FOR IT. PT IS ASYMPTOMATIC FOR HTN AT THIS TIME. PT IS NO LONGER GETTING CBG'S BECAUSE THEY ARE NOW STABLE. FACE IS SWOLLEN BUT DOES NOT INTERFERE W/HIS ABILITY TO SWALLOW AT THIS TIME. PT IS NON-VERBAL, BUT APPEARS TO BE WITHDRAWN AND DEPRESSED. PT SLEPT POORLY ALL NOC.
[2018-11-05 06:07] LABS: Anion Gap 6 mmol/L (6-16); Blood Urea Nitrogen 29 mg/dL (8-24); Bun/Creatinine Ratio 30.6 (12.0-20.0); CO2, Blood 28 mmol/L (21-32); Calcium, Blood 10.4 mg/dL (8.5-10.1); Chloride, Blood 98 mmol/L (98-108); Creatinine, Blood 0.95 mg/dL (0.60-1.20); Glomerular Filtration Rate >60 (60-); Glucose, Blood 133 mg/dL (70-99); Phosphorus, Blood 3.4 mg/dL (2.5-4.9); Potassium, Blood 4.3 mmol/L (3.5-5.5); Sodium, Blood 132 mmol/L (136-145)
--- NOTE | 2018-11-05 16:21 | NUR ---
Clinical Visit: Follow up with pt and family. Pt is agitated and active in bed. He is reaching his arms up and pulling on the overbed trapeze. , Deidre, and [id number] are at bedside. Deidre is angry. "They just told me that he is going home on . He doesn't want to go home, but they are making him go anyway." Confirmed that the plan was to discharge with hospice. Deidre states, "how am I supposed to take care of him? He needs to be walking and he can hardly eat." reports that pt has said that 'he is done.' She states that he indicated to her this morning that he was done by nodding when she asked him if he was done [with medical treatment] and motioning a finger across his neck. She is asking him about it again with me present: He looks away from her and does not answer with gestures or with nodding. Reveiwed with her end of life symptoms. She states that he is now hallucinating this morning, reaching out to things that are not there. He is not having dyspnea. Slight mottling pattern on knees, skin is dusky. He will make eye contact briefly, then his eyes will roll back into his head. Reveiwed with nursing. Reshma states that pt will be taken off of artificial nutrition this afternoon. Pt still swallowing medications, but it does take cueing at times. She just gave him another tablet of MS Contin during my visit. checked his mouth to make sure that he swallowed it. leaves and I am able to speak with the pt. He makes eye contact when I ask for his attention. Told him that he is showing symptoms of end of life. I ask if he would like us to change his care plan to comfort so that we would be able to use appropriate medications to manage his symptoms. He closes his eyes without answering. Reviewed again with Reshma. She is concerned that he is a FULL CODE at this time. He is not looking well. Pt at risk for dying in the hospital with full code status because the pt and the family will not change to a DNR and will not change to comfort care. Deidre told me as she was leaving that she will not make these choices for him. Will remain available.
--- NOTE | 2018-11-05 17:01 | NUR ---
SHIFT ASSESSMENT PATIENT HAS BEEN INCREASINGLY WITHDRAWN AND CONFUSED. PATIENT HAS BEEN REFUSING CARE AND DECLINING TO WORK WITH PT AND OT. WHEN ASKED BY PALLIATIV CARE IF HE WOULD LIKE TO GO HOME ON HOPICE PATIENT DOES NOT RESPOND. AT THIS TIME THE TENTATIVE PLAN IS FOR PATIENT TO GO HOME ON HOSPICE SUNDAY. TPN IS BEING STOPPED. PATIENT DECLINES PO INTAKE UNLESS HIS IS PRESENT. PALLIATIVE CARE AND CARE MANGEMENT MET WITH FAMILY TODAY. PATIENT MEDICATED X3 FOR PAIN THIS SHIFT. CALL LIGHT IN REACH, WILL CONTINUE TO MONITOR.
--- NOTE | 2018-11-06 04:59 | NUR ---
VSS, AFEBRILE. A/O TO SELF AND FAMILY, NON-VERBAL, INCREASING DIFFICULTY SWALLOWING PILLS, FAMILY AT THE BEDSIDE, PAIN MEDS ARE PO AND MIGHT BE EASIER TO ADMINISTER IF THEY WERE IV, INSTEAD. PT SLEPT OVERNOC. NO COMPLAINTS.
--- NOTE | 2018-11-06 05:40 | NUR ---
RT CAME TO PT'S ROOM TO GIVE A BREATHING TX. PT WAS FOUND TO HAVE A LARGE OBSTRUCTING CAST IN HIS STOMA. RT REQUESTED THAT THE HOSPITALIS COME TO THE ROOM IN CASE SHE WAS UNSUCCESSFUL IN REMOVING IT. THE HOSPITALIST ARRIVED AND ATTEMPTED TO REMOVE THE CAST HIMSELF, BUT WAS UNSUCCESSFUL. AN ORDER WAS PLACED FOR ENT CONSULT. THE CONSULT WAS CALLED INTO THE ANS. SERVICE. PT IS RESTING QUIETLY IN HIS BED AT THIS TIME.
[2018-11-06 07:07] LABS: Anion Gap 9 mmol/L (6-16); Blood Urea Nitrogen 30 mg/dL (8-24); Bun/Creatinine Ratio 24.2 (12.0-20.0); CO2, Blood 27 mmol/L (21-32); Calcium, Blood 10.5 mg/dL (8.5-10.1); Chloride, Blood 98 mmol/L (98-108); Creatinine, Blood 1.24 mg/dL (0.60-1.20); Glomerular Filtration Rate >60 (60-); Glucose, Blood 89 mg/dL (70-99); Potassium, Blood 4.3 mmol/L (3.5-5.5); Sodium, Blood 134 mmol/L (136-145)
--- NOTE | 2018-11-06 08:35 | NUR ---
IN TO CLEAR TRACH AT ABOUT 0745. R.T. PLACES HUMIDIFIED MASK TO TRACH. PT TOLERATED WELL.
--- NOTE | 2018-11-06 12:41 | NUR ---
PATIENT CLEAN AND DRY. GIVEN SUCTION. DOES NOT APPEAR TO HAVE ANY SPUTUM IN TRACH.
--- NOTE | 2018-11-06 14:26 | NUR ---
Reviewed with Pema, partner integration planner and the home health care physician clinical coordinator, Shazia. Plan made for Palliative Care to assess the patient to make sure he isn't imminent in his end of life process. Clinical Visit: Pt is resting in bed, appears quite comfortable from when I assessed him yesterday. , Deidre, and pt's sister in law are present. Assessed patient with goal in mind to determine if pt has become imminent in his dying process. Pain appears controled. reports that pt's agitation has resoved now that "he's finally gettin' his pills. They were NOT giving him any pain meds. He has been taking 'em for years now." She denies further hallucinations. "They weren't givin' him his pills. He was cynthia' through withdrawals from them things. He hasn't been doin' none of that since last night when they finally give 'em his pills." Pt is calm, no secretions noted, no dysnpea noted, no mottling to extremities. Per assessment, this patient is not imminent and not actively dying. He has not started transitioning. He is refusing to eat, per Deidre. Deidre continues to list her frustrations. She is angry. She states, "If that Dr. Webber comes back in here, you will probably have to haul me off to [facility]." She is upset that the patient's IV nutrition has been discontinued. Allowed Deidre to vent her frustrations. She verbalized three times her intent to be arrested "if Dr. Webber shows his face in this room again." Spoke to Dr. Webber regarding this patient. Reviewed plan of care. He reports that he has spent substancial time in the room with Deidre reviewing all of the pt's diagnoses and treatments. Reviewed POLST and advance directive information, notified him that both documents are incomplete. Spoke to social insurance specialist, Pema. Reported my assessment.
--- NOTE | 2018-11-06 14:30 | NUR ---
PATIENT APPEARS ALERT TO SELF AND FAMILY. KEE FACE. BRUISING SCATTERED. BUTTOCK RED, MEPILEX REPLACED. MEDICATED FOR PAIN X 2. FAMILY IN AND OUT . WILL CONTINUE TO MONITOR.
--- NOTE | 2018-11-06 15:22 | NUR ---
Clinical Visit: Call from AEROSPACE MECHANIC. He reports that family has requested a visit. Pt is laying in bed with eyes closed, does not appear to be in any distress. Deidre, , is present, along with her sister. begins questioning care and plan. She states, "You can't send him home without nutrition! So you guys are just going to send him home with nothin' to eat and with no food or nothin'? The doctor took the fuckin' bag [IV nutrition] yesterday. Dr. Cash even said that he needed it because he wasn't eatin,' now what's changed? Nothin' changed, that's what.." Provided end of life education again for this family. Reviewed with them [Deidre and her sister] that it is harmful for dying persons to recieve IV fluids, Deidre interruped with, "who tells you that? It says right here on his POLST that he wanted IV fluids. Why aren't you paying attention to what HE wrote and what HE wants. Every time we come in here you people want to see this kilo' paperwork and NOBODY has even kilo' looked at it." Replied to her that I did review it this morning and she states, "you just looked at the pink one, not the other one." She shows me in the advance directive. She flips to the questionaire/worksheet section with yellow tabs and says "right here he checked this box." Educated her that both forms are incomplete. The blue tabs in the advance directive packet is the actual document. Deidre does not want to hear this, and she raises her voice, "he WANTS IV FLUIDS! Who decided that he does not need them? I didn't, he didn't! Advised that I cannot reorder fluids for him, the order needs to come from the doctor. She states, "This hospital is so [facility] stupid. I'm going to ayana this [facility]." Deidre's sister, who is at bedside also, is also participating in the conversation. She asks about IV fluids and nutrition again. Educated that IV fluids are not ordered for dying patients and furthermore, it is acutally harmful to a dying person. The sister lunged out of her chair toward me and yells, "YOUR'E A FUCKIN' LIAR! MY MOTHER JUST HERE A COUPLE MONTHS AGO AND THEY HAD FLUIDS ON HER UNTIL THE DAY SHE !" As the situation seems to be escalating, I stood up from the chair that I was in so I could leave. I told them that I would not return to the room, as this has not been helpful. Spoke to charge nurses Sosa and Maryjane about the conversation. Reviewed the incident with security team lead. Reported to Pema in health social work professor.
--- NOTE | 2018-11-06 15:47 | NUR ---
I received a call from a Dr. Berry Castellanos, he stated that he was the patients pain managment doctor. He also stated that he did not have priveledges here to write orders on the patient. Dr. Castellanos wanted it known that the patient was not an [facility] patient and has never been an [facility] patient. He wanted the patient assigned to a new doctor. Dr. Castellanos informed me that the patients does not want Dr. Webber in the patients room. I explained to Dr. Castellanos that as long as the patient was an [facility] patient Dr. Webber was the only doctor seeing [facility] patients. Dr. Castellanos also stated if the made a law suit to the hospital, he would be testifing on behalf of his patient.
--- NOTE | 2018-11-06 16:41 | NUR ---
Ethics consult order processed. Case conference facilitated with Palliative Care Nurse Sayda. EMR chart notes reviewed, discharge disposition concerns and care complications discussed. The principal is reportedly elegibile for hospice enrollment and has been scheduled to be sent home on EOL services with a concession of TPN to mitigate conflict with the . Given the extenuating factors involved this appears be an effective and morally reasonable accomodation to make. If the mechanically administered nutrition or hydration does not afflict an undue or disproportionate burden on the principal, the is satisfied with the arrangement, and hospice is receptive to accepting him on TPN, this Ethicist and the Committee Members consulted, find this to be a licit compromise and good solution. Thank you for this consult. Clarence Markham DMin
--- NOTE | 2018-11-07 04:31 | NUR ---
VSS, AFEBRILE, A/O, NON-VERBAL, PT SLEPT DEEPLY, INCONT DURING THE NOC, DENIES PAIN WHEN ASKED, COCCYX COVERED BY DREESSING. PT IS AGILE AND COOPERATIVE W/TURNING. STOMA CLEAN/DRY, TPN PER ORDER. NO COMPLAINTS.
[2018-11-07] MEDS ORDERED: Augmentin 875-1 EACH PO (12:28)
[2018-11-07] MEDS ORDERED: Prinivil10 MG PO (12:29)
[2018-11-07] MEDS ORDERED: MEGESTROL400 MG/10 PO (12:29)
[2018-11-07] MEDS ORDERED: POTCHL20ER PO (12:30)
--- NOTE | 2018-11-07 16:42 | NUR ---
PT BP ELEVATED 172/120, ATTEMPTED TO ADMINISTER PRN APPRESOLINE, PT AND SPOUSE DECLINED, NOTIFIED DR Debbie FLOOD WITH NO NEW ORDERS. WILL CONTINUE TO MONITOR.
--- NOTE | 2018-11-07 17:51 | NUR ---
DISCHARGE SUMMARY PT ALERT, NONVERBAL, ORIENTED TO FAMILY AND NODS YES OR NO FOR COMMUNICATIONS. PT RESTING IN BED DURING SHIFT. REPOSITIONED FOR COMFORT, ASSIST WITH REPOSITIONING AND CHANGING. SPOUSE ASSIST WITH URINAL AT BEDSIDE. PT AND SPOUSE REPORTS PAIN, MEDICATED X2 WITH MS CONTIN AND X1 WITH OXYCODONE PER ORDERS. PT SOB WITH EXERTION, ON RA, RT PROVIDED HUMIDIER FOR STOMA, PT/FAMILY REMOVED. PT DENIES NAUSEA, POOR APPETEITE. PT RECEIVING TPN, PLANS TO RESUME AT HOME. ELEVATED BP NOTED, MEDICATED WITH SCHEDULED MEDICATIONS THIS AM, PT/SPOUSE REFUSED METOPROLOL AND PRN APPRESALINE, DR Debbie FLOOD NOTIFIED. ELEVATED HR NOTED. OTHER VSS. NO OTHER ACUTE CHANGES NOTED. PT/SPOUSE EDUCATED ON DISCHARGE, MEDICATIONS AND FOLLOW UP APPOINTMENTS. SPOUSE STATES SHE WILL BE RESTARTING HIS HOME MEDICATIONS ONCE HE IS HOME, INCLUDING HIS STEROID. MEDICATIONS FAXED TO [facility] IN [place]. PT LEFT ROOM AT 1734 WITH [employer].
== END 2018-11-07 17:39 | disposition home health service (06) | DRG 177 ==
LOC: ER 09:41 → ERHOLD 09:42 → MEDS 16:26 → ENPENDDIS 11-07 12:15 → MEDS 11-07 17:39
PROVIDERS: Emergency Medicine; Internal Medicine; Internal Medicine Critical Care Medicine; Internal Medicine Infectious Disease; Pharmacist; ADMIT Hospitalist
PROC: 0B9C7ZX Drainage of Right Upper Lung Lobe, Via Natural or Artificial Opening, Diagnostic (ICD-10-PCS; principal; 2018-11-01 10:00)
DX: J85.0 Gangrene and necrosis of lung (principal); J18.1 Lobar pneumonia, unspecified organism; C79.51 Secondary malignant neoplasm of bone; C78.7 Secondary malignant neoplasm of liver and intrahepatic bile duct; C79.89 Secondary malignant neoplasm of other specified sites; E24.2 Drug-induced Cushing's syndrome; A15.0 Tuberculosis of lung; Z85.21 Personal history of malignant neoplasm of larynx; Z51.5 Encounter for palliative care; T38.0X5A Adverse effect of glucocorticoids and synthetic analogues, initial encounter; G89.4 Chronic pain syndrome; I10 Essential (primary) hypertension; Z87.891 Personal history of nicotine dependence; Z79.82 Long term (current) use of aspirin; K21.9 Gastro-esophageal reflux disease without esophagitis; M19.90 Unspecified osteoarthritis, unspecified site; G47.00 Insomnia, unspecified; Z93.0 Tracheostomy status; G47.33 Obstructive sleep apnea (adult) (pediatric); F32.9 Major depressive disorder, single episode, unspecified; E04.9 Nontoxic goiter, unspecified
CPT/HCPCS: 31720; 36415; 71045; 71250; 80048; 80053; 80069; 80202; 81001; 82607; 82728; 82746; 82947; 83540; 83550; 83735; 84100; 84145; 84478; 85025; 85045; 85610; 85730; 86480; 86635; 86850; 86900; 86901; 87070; 87086; 87205; 87449; 87486; 87581; 87633; 87798; 88108; 88312; 90686; 92610; 93005; 93010; 94640; 94760; 96365; 97110; 97116; 97162; 97166; 97530; 97535; 99285-25; G0008; J0696; J1642; J1650; J2250; J2543; J2550; J3010; J3370; J7030; J7120; J7626

== ENCOUNTER 2018-11-19 07:56 | Emergency (ER) | payer MEDICARE, OTHER ==
[~2018-11-19] VITALS: Ht 180.3 cm; Wt 77.1 kg
[~2018-11-19 07:56] MED LIST changes: +Augmentin 875-1 EACH PO; +MEGESTROL400 MG/10 PO; +Prinivil10 MG PO
== END 2018-11-19 12:18 | disposition home or self-care (01) ==
LOC: ER 07:56
DX: C32.9 Malignant neoplasm of larynx, unspecified (principal); C79.89 Secondary malignant neoplasm of other specified sites; E03.9 Hypothyroidism, unspecified; F32.9 Major depressive disorder, single episode, unspecified; K21.9 Gastro-esophageal reflux disease without esophagitis; Z87.891 Personal history of nicotine dependence; Z88.8 Allergy status to other drugs, medicaments and biological substances; Z79.899 Other long term (current) drug therapy
CPT/HCPCS: 31720; 96372; 99284-25; J2270